=== PATIENT | male | born 1945 | race Caucasian/White ===

== ENCOUNTER 2018-07-06 10:01 | Emergency (ER) | payer MEDICARE ==
[~2018-07-06] VITALS: Ht 182.9 cm; Wt 129.6 kg
[~2018-07-06 10:01] MED LIST: ALBU8HFA PO; ALLO300T2 PO; BACL10TA2 PO; BECL8.7A7 INH; FURO-149 PO; GLIM4TAB PO; IPRA3AMP31 IH; LISI-604 PO; LOP25T PO; POTA-82 PO; PRED10TA PO; PREG150C PO; SIMV40TA PO; SITA100T11 PO; WARF-55 PO
[2018-07-06 10:10] VITALS: BP 115/62
[2018-07-06] MEDS ORDERED: ACET1TAB12 PO (11:18)
== END 2018-07-06 11:57 | disposition home or self-care (01) ==
LOC: ER 10:01
DX: M79.675 Pain in left toe(s) (principal); G89.29 Other chronic pain; I49.9 Cardiac arrhythmia, unspecified; I10 Essential (primary) hypertension; J44.9 Chronic obstructive pulmonary disease, unspecified; E11.9 Type 2 diabetes mellitus without complications; Z95.0 Presence of cardiac pacemaker; Z98.890 Other specified postprocedural states; Z88.5 Allergy status to narcotic agent; Z88.2 Allergy status to sulfonamides; Z88.8 Allergy status to other drugs, medicaments and biological substances; Z79.01 Long term (current) use of anticoagulants; Z79.899 Other long term (current) drug therapy
CPT/HCPCS: 99283

== ENCOUNTER 2018-08-27 09:05 | Emergency (ER) | payer MEDICARE ==
[~2018-08-27] VITALS: Ht 185.4 cm; Wt 128.0 kg
[~2018-08-27 09:05] MED LIST changes: +ACET1TAB12 PO
[2018-08-27 09:07] VITALS: BP 118/84
[2018-08-27] MEDS ORDERED: predniSONE 20 mg tablet PO ONE (09:20)
[2018-08-27] MEDS ORDERED: HYDR-565 PO (09:27)
[2018-08-27] MEDS ORDERED: ONDA4TAB9 PO (09:27)
[2018-08-27] MEDS ORDERED: acetaminophen 325mg tablet PO ONE (09:30)
== END 2018-08-27 09:40 | disposition home or self-care (01) ==
LOC: ER 09:06
DX: M79.675 Pain in left toe(s) (principal); G89.29 Other chronic pain; E11.42 Type 2 diabetes mellitus with diabetic polyneuropathy; I10 Essential (primary) hypertension; J44.9 Chronic obstructive pulmonary disease, unspecified; Z95.0 Presence of cardiac pacemaker; Z98.890 Other specified postprocedural states; Z88.5 Allergy status to narcotic agent; Z88.1 Allergy status to other antibiotic agents; Z88.8 Allergy status to other drugs, medicaments and biological substances; Z79.01 Long term (current) use of anticoagulants; Z79.899 Other long term (current) drug therapy
CPT/HCPCS: 99284

== ENCOUNTER 2018-09-24 08:09 | Emergency (ER) | payer MEDICARE ==
[~2018-09-24] VITALS: Ht 185.4 cm; Wt 127.5 kg
[~2018-09-24 08:09] MED LIST changes: +HYDR-4353 PO; +ONDA4TAB9 PO
[2018-09-24 09:25] LABS: ALANINE AMINOTRANSFERASE 27 U/L (12-78); ALBUMIN 3.5 G/DL (3.4-5.0); ALBUMIN/GLOBULIN RATIO 0.9 (1.1-1.5); ALKALINE PHOSPHATASE 86 IU/L (46-116); ANION GAP 9 (8-16); ASPARTATE AMINO TRANSFERASE 20 U/L (10-37); BILIRUBIN,TOTAL 0.6 MG/DL (0.1-1.0); BLOOD UREA NITROGEN 22 MG/DL (7-18); BUN/CREATININE RATIO 22.9 (5.4-32.0); CALCIUM 9.2 MG/DL (8.5-10.1); CHLORIDE 103 MMOL/L (99-107); CREATININE 0.96 MG/DL (0.60-1.10); GLUCOSE 154 MG/DL (70-104); POTASSIUM 4.3 MMOL/L (3.5-5.1); SODIUM 139 MMOL/L (135-145); TOTAL CARBON DIOXIDE 26.9 MMOL/L (24-32); TOTAL PROTEIN 7.6 G/DL (6.4-8.2); eGFR 77 ML/MIN
[2018-09-24 09:26] LABS: BASOPHILS % (AUTO) 0.2 % (0-1); EOSINOPHILS # (AUTO) 0.5 X10'3 (0-0.9); EOSINOPHILS % (AUTO) 8.1 % (0-6); LYMPHOCYTES # (AUTO) 0.7 X10'3 (1.1-4.8); LYMPHOCYTES % (AUTO) 10.8 % (21-51); MEAN PLATELET VOLUME 10.1 FL (7.4-10.4); MONOCYTES # (AUTO) 0.6 X10'3 (0-0.9); MONOCYTES % (AUTO) 9.1 % (2-12); NEUTROPHILS # (AUTO) 4.7 X10'3 (1.8-7.7); NEUTROPHILS % (AUTO) 71.8 % (42-75); PLATELET COUNT 163 X10'3 (140-440); RED BLOOD COUNT 6.57 X10'6 (4.70-6.10); RED CELL DISTRIBUTION WIDTH 15.4 % (11.5-14.5); WHITE BLOOD COUNT 6.6 X10'3 (4.5-11.0)
[2018-09-24 09:30] LABS: INR 2.1 INR; PARTIAL THROMBOPLASTIN TIME 40 SECONDS (22-32); PROTHROMBIN TIME 20.2 SECONDS (9.0-12.0)
[2018-09-24 09:34] LABS: HEMATOCRIT 53.6 % (42.0-52.0); HEMOGLOBIN 17.8 g/dl (14.0-17.9); MEAN CORPUSCULAR HEMOGLOBIN 27.1 PG (27.0-31.0)
[2018-09-24 09:35] LABS: MEAN CORPUSCULAR HGB CONC 33.2 % (33.0-36.5)
[2018-09-24] MEDS ORDERED: TRAM50TA2 PO (09:45)
[2018-09-24 10:02] VITALS: BP 116/65
== END 2018-09-24 10:09 | disposition home or self-care (01) ==
LOC: ER 08:10
DX: S06.9X1A Unspecified intracranial injury with loss of consciousness of 30 minutes or less, initial encounter (principal); S00.83XA Contusion of other part of head, initial encounter; S13.4XXA Sprain of ligaments of cervical spine, initial encounter; E11.42 Type 2 diabetes mellitus with diabetic polyneuropathy; I10 Essential (primary) hypertension; J44.9 Chronic obstructive pulmonary disease, unspecified; G89.29 Other chronic pain; Z95.0 Presence of cardiac pacemaker; Z98.890 Other specified postprocedural states; Z88.5 Allergy status to narcotic agent; Z88.2 Allergy status to sulfonamides; Z88.1 Allergy status to other antibiotic agents; Z88.8 Allergy status to other drugs, medicaments and biological substances; Z79.01 Long term (current) use of anticoagulants; Z79.899 Other long term (current) drug therapy; W05.0XXA Fall from non-moving wheelchair, initial encounter; Y93.89 Activity, other specified; Y92.89 Other specified places as the place of occurrence of the external cause; Y99.8 Other external cause status
CPT/HCPCS: 36415; 70450; 70486; 72125; 80053; 85025; 85610; 85730; 99285

== ENCOUNTER 2019-07-14 08:43 | Inpatient (IN) | payer MEDICARE ==
[~2019-07-14] VITALS: Ht 185.4 cm; Wt 143.6 kg
[~2019-07-14 08:43] MED LIST changes: -HYDR-4353 PO; -ONDA4TAB9 PO
[2019-07-14 09:41] LABS: BASOPHILS % (AUTO) 0.2 % (0-1); EOSINOPHILS # (AUTO) 0.1 X10'3 (0-0.9); EOSINOPHILS % (AUTO) 2.5 % (0-6); HEMATOCRIT 48.1 % (42.0-52.0); LYMPHOCYTES # (AUTO) 0.2 X10'3 (1.1-4.8); LYMPHOCYTES % (AUTO) 4.2 % (21-51); MEAN CORPUSCULAR HEMOGLOBIN 28.7 PG (27.0-31.0); MEAN CORPUSCULAR HGB CONC 33.3 g/dL (33.0-36.5); MEAN CORPUSCULAR VOLUME 86.3 FL (78-98); MEAN PLATELET VOLUME 8.9 FL (7.4-10.4); MONOCYTES # (AUTO) 0.4 X10'3 (0-0.9); MONOCYTES % (AUTO) 7.4 % (2-12); NEUTROPHILS # (AUTO) 4.9 X10'3 (1.8-7.7); NEUTROPHILS % (AUTO) 85.7 % (42-75); PLATELET COUNT 140 X10'3 (140-440); RED BLOOD COUNT 5.58 X10'6 (4.70-6.10); RED CELL DISTRIBUTION WIDTH 15.6 % (11.5-14.5); WHITE BLOOD COUNT 5.7 X10'3 (4.5-11.0)
--- NOTE | 2019-07-14 09:42 | NUR ---
BACK FROM CT SCAN WITH MONITORED PATIENT
[2019-07-14] MEDS ORDERED: ONDA8TAB6 PO (09:45)
[2019-07-14] MEDS ORDERED: PANT20TA3 PO (09:45)
[2019-07-14] MEDS ORDERED: POTA20TA19 PO (09:45)
[2019-07-14 09:46] LABS: ALANINE AMINOTRANSFERASE 30 U/L (12-78); ALBUMIN 3.6 G/DL (3.4-5.0); ALBUMIN/GLOBULIN RATIO 0.9 (1.1-1.5); ALKALINE PHOSPHATASE 68 IU/L (46-116); ANION GAP 6 (8-16); ASPARTATE AMINO TRANSFERASE 21 U/L (10-37); BILIRUBIN,TOTAL 0.8 MG/DL (0.1-1.0); BLOOD UREA NITROGEN 23 MG/DL (7-18); BUN/CREATININE RATIO 27.1 (5.4-32.0); CALCIUM 8.8 MG/DL (8.5-10.1); CHLORIDE 105 MMOL/L (99-107); CREATININE 0.85 MG/DL (0.60-1.10); GLUCOSE 154 MG/DL (70-104); POTASSIUM 4.3 MMOL/L (3.5-5.1); SODIUM 140 MMOL/L (135-145); TOTAL CARBON DIOXIDE 29.5 MMOL/L (24-32); TOTAL PROTEIN 7.5 G/DL (6.4-8.2); eGFR 89 ML/MIN
[2019-07-14 09:47] LABS: PARTIAL THROMBOPLASTIN TIME 39 SECONDS (22-32)
--- NOTE | 2019-07-14 10:04 | NUR ---
PATIENT'S RR RATE TO 32 AND VERY SHALLOW WITH REPOSITIONING IN BED
[2019-07-14] MEDS ORDERED: HYDROcodone/acetaminophen 5mg/325mg tablet PO ONE (10:10)
[2019-07-14] MEDS ORDERED: furosemide 10 MG/1 ML 10ml inj IV ONE (11:05)
[2019-07-14] MEDS ORDERED: MESSAGE TO PHARMACY PO ONE (11:10)
[2019-07-14] MEDS ORDERED: dextrose 50%-water 50ml dispensing syringe IV PRN ×2 (11:10)
[2019-07-14] MEDS ORDERED: glucagon, human recombinant 1mg kit SUBCUT PRN (11:10)
[2019-07-14] MEDS: furosemide 40mg/4ml inj IV SCH ×2 (11:10→19:56)
[2019-07-14] MEDS ORDERED: dextrose ORAL solution 15 GM/59 ML bottle PO PRN ×2 (11:10)
[2019-07-14] MEDS ORDERED: acetaminophen 325mg tablet PO PRN (11:10)
[2019-07-14] MEDS ORDERED: mag hydrox/Alum hydrox/simeth 30ml oral suspension PO PRN (11:10)
[2019-07-14] MEDS ORDERED: insulin Lispro (HumaLOG) vial - multi-dose SQ SCH (11:10)
[2019-07-14] MEDS ORDERED: magnesium hydroxide 30ml (MOM) UD suspension PO PRN (11:10)
[2019-07-14] MEDS ORDERED: ondansetron/PF 4mg/2ml inj IV PRN (11:10)
[2019-07-14] MEDS ORDERED: HYDR-4383 PO (12:04)
[2019-07-14] MEDS ORDERED: DULO-31 PO (12:05)
[2019-07-14] MEDS ORDERED: FLO0.4C PO (12:09)
--- NOTE | 2019-07-14 12:20 | NUR ---
US TECH AT BEDSIDE TO PERFORM ECHOCARDIOGRAM.
[2019-07-14] MEDS ORDERED: DULO60CA45 PO (12:29)
[2019-07-14] MEDS ORDERED: PIOG30TA71 PO (12:41)
[2019-07-14 15:36] LABS: HEMOGLOBIN A1C 6.1 % (4.5-6.2)
[2019-07-14 16:54] VITALS: BP 122/65
[2019-07-14 18:00] VITALS: BP 130/61
--- NOTE | 2019-07-14 18:14 | NUR ---
Problems reprioritized. Patient report given, questions answered & plan of care reviewed with LOLA Tyler.
--- NOTE | 2019-07-14 19:18 | NUR ---
Paged Dr. Rodriguez regarding pain meds for pt. Awaiting return call for new orders. PAGER ID: [phone] MESSAGE: Pt: Chris Pavon c/o severe chronic toe pain, takes [place] 5-10mg at home which is listed on his med rec, but not ordered yet. Please call Nayeli in [facility] [phone]
--- NOTE | 2019-07-14 19:26 | NUR ---
New pain med orders entered from return call from Dr. Rodriguez. See eMAR for more info.
[2019-07-14] MEDS ORDERED: HYDROcodone/acetaminophen 5mg/325mg tablet PO PRN (19:30)
[2019-07-14] MEDS: duloxetine 30mg CAPSULE.DR PO SCH (19:56)
[2019-07-14] MEDS: baclofen 10mg tablet PO SCH (19:56)
[2019-07-14] MEDS: metoprolol tartrate 50mg tablet PO SCH (19:56)
[2019-07-14] MEDS: HYDROcodone/acetaminophen 10/325mg tab PO PRN (19:57)
[2019-07-14] MEDS: insulin glargine (Lantus) pen - multi-dose SQ SCH (20:01)
[2019-07-14] MEDS: atorvastatin 20mg tablet PO SCH (20:01)
[2019-07-14 22:00] VITALS: BP 133/76
[2019-07-15] MEDS: HYDROcodone/acetaminophen 10/325mg tab PO PRN ×5 (00:05→23:45)
[2019-07-15 02:00] VITALS: BP 131/74
[2019-07-15 06:04] LABS: BASOPHILS % (AUTO) 0.4 % (0-1); EOSINOPHILS # (AUTO) 0.1 X10'3 (0-0.9); EOSINOPHILS % (AUTO) 1.9 % (0-6); HEMATOCRIT 48.2 % (42.0-52.0); HEMOGLOBIN 15.9 g/dl (14.0-17.9); LYMPHOCYTES # (AUTO) 0.4 X10'3 (1.1-4.8); LYMPHOCYTES % (AUTO) 8.3 % (21-51); MEAN CORPUSCULAR HEMOGLOBIN 28.4 PG (27.0-31.0); MEAN CORPUSCULAR HGB CONC 33.1 g/dL (33.0-36.5); MEAN CORPUSCULAR VOLUME 85.6 FL (78-98); MEAN PLATELET VOLUME 9.1 FL (7.4-10.4); MONOCYTES # (AUTO) 0.6 X10'3 (0-0.9); NEUTROPHILS # (AUTO) 4.1 X10'3 (1.8-7.7); NEUTROPHILS % (AUTO) 77.4 % (42-75); PLATELET COUNT 147 X10'3 (140-440); RED BLOOD COUNT 5.63 X10'6 (4.70-6.10); RED CELL DISTRIBUTION WIDTH 15.2 % (11.5-14.5); WHITE BLOOD COUNT 5.4 X10'3 (4.5-11.0)
[2019-07-15 06:32] LABS: ALBUMIN 3.6 G/DL (3.4-5.0); ANION GAP 13 (8-16); BLOOD UREA NITROGEN 23 MG/DL (7-18); BUN/CREATININE RATIO 24.7 (5.4-32.0); CALCIUM 8.4 MG/DL (8.5-10.1); CHLORIDE 101 MMOL/L (99-107); CREATININE 0.93 MG/DL (0.60-1.10); GLUCOSE 110 MG/DL (70-104); POTASSIUM 3.8 MMOL/L (3.5-5.1); SODIUM 139 MMOL/L (135-145); TOTAL CARBON DIOXIDE 25.4 MMOL/L (24-32); eGFR 80 ML/MIN
--- NOTE | 2019-07-15 07:07 | NUR ---
Page to Andrzej DUNHAM Pt. pain control needs PAGER ID: [phone] MESSAGE: Pt. [place] Rm 3027B has poor pain control in Left foot. [place] 10 due at 8 AM. He wants to AMA if pain control is not provided KATY. Provided ice in addition to the Q4 Bo[place] 10 for pain. 09/06 now. Jesusita DAVILA [phone]
[2019-07-15] MEDS: morphine 2 MG/ML inj. syringe IV PRN ×2 (07:33→20:12)
[2019-07-15 07:37] VITALS: BP 120/96
[2019-07-15] MEDS: lisinopril 5mg tablet PO SCH (09:05)
[2019-07-15] MEDS: allopurinol 300 MG tablet PO SCH (09:05)
[2019-07-15] MEDS: furosemide 40mg/4ml inj IV SCH ×2 (09:05→20:11)
[2019-07-15] MEDS: duloxetine 30mg CAPSULE.DR PO SCH ×2 (09:05→20:11)
[2019-07-15] MEDS: metoprolol tartrate 50mg tablet PO SCH ×2 (09:07→20:11)
[2019-07-15] MEDS: tamsulosin 0.4mg capsule PO SCH (09:08)
[2019-07-15] MEDS: baclofen 10mg tablet PO SCH ×2 (09:08→20:11)
[2019-07-15 11:00] VITALS: BP 125/68
--- NOTE | 2019-07-15 13:06 | NUR ---
DM Consult: Pt A1C <7 and not appropriate for DM ed at this time. Addendum: 07/15/19 at [address] Amended: Links added.
[2019-07-15 16:39] VITALS: BP 112/61
[2019-07-15 18:00] VITALS: BP 110/50
[2019-07-15] MEDS: warfarin 5mg tablet PO SCH (20:11)
[2019-07-15] MEDS: atorvastatin 20mg tablet PO SCH (20:11)
[2019-07-15] MEDS: insulin glargine (Lantus) pen - multi-dose SQ SCH (20:12)
[2019-07-15 22:00] VITALS: BP 107/61
[2019-07-16 02:00] VITALS: BP 131/73
[2019-07-16] MEDS: HYDROcodone/acetaminophen 10/325mg tab PO PRN ×3 (04:40→20:47)
[2019-07-16 06:00] VITALS: BP 113/62
[2019-07-16 06:03] LABS: BASOPHILS % (AUTO) 0.4 % (0-1); EOSINOPHILS # (AUTO) 0.2 X10'3 (0-0.9); EOSINOPHILS % (AUTO) 4.9 % (0-6); HEMATOCRIT 48.5 % (42.0-52.0); LYMPHOCYTES # (AUTO) 0.7 X10'3 (1.1-4.8); LYMPHOCYTES % (AUTO) 14.2 % (21-51); MEAN CORPUSCULAR HEMOGLOBIN 28.6 PG (27.0-31.0); MEAN CORPUSCULAR HGB CONC 32.9 g/dL (33.0-36.5); MEAN CORPUSCULAR VOLUME 86.9 FL (78-98); MEAN PLATELET VOLUME 9.9 FL (7.4-10.4); MONOCYTES # (AUTO) 0.6 X10'3 (0-0.9); MONOCYTES % (AUTO) 12.7 % (2-12); NEUTROPHILS # (AUTO) 3.4 X10'3 (1.8-7.7); NEUTROPHILS % (AUTO) 67.8 % (42-75); PLATELET COUNT 131 X10'3 (140-440); RED BLOOD COUNT 5.58 X10'6 (4.70-6.10); RED CELL DISTRIBUTION WIDTH 15.4 % (11.5-14.5)
[2019-07-16 06:12] LABS: ALBUMIN 3.4 G/DL (3.4-5.0); ANION GAP 10 (8-16); BLOOD UREA NITROGEN 27 MG/DL (7-18); BUN/CREATININE RATIO 32.1 (5.4-32.0); CALCIUM 8.8 MG/DL (8.5-10.1); CHLORIDE 99 MMOL/L (99-107); CREATININE 0.84 MG/DL (0.60-1.10); GLUCOSE 111 MG/DL (70-104); POTASSIUM 3.4 MMOL/L (3.5-5.1); SODIUM 138 MMOL/L (135-145); TOTAL CARBON DIOXIDE 28.8 MMOL/L (24-32); eGFR 90 ML/MIN
--- NOTE | 2019-07-16 06:26 | NUR ---
Patient in room PCU 3027. I have received report from Nayeli DAVILA and had the opportunity to ask questions and assume patient care.
[2019-07-16] MEDS: lisinopril 5mg tablet PO SCH (08:49)
[2019-07-16] MEDS: duloxetine 30mg CAPSULE.DR PO SCH ×2 (08:49→20:36)
[2019-07-16] MEDS: metoprolol tartrate 50mg tablet PO SCH ×2 (08:50→20:41)
[2019-07-16] MEDS: furosemide 40mg/4ml inj IV SCH ×2 (08:51→20:41)
[2019-07-16] MEDS: allopurinol 300 MG tablet PO SCH (08:51)
[2019-07-16] MEDS: tamsulosin 0.4mg capsule PO SCH (08:51)
[2019-07-16] MEDS: baclofen 10mg tablet PO SCH ×2 (08:51→20:37)
[2019-07-16 11:00] VITALS: BP 122/61
--- NOTE | 2019-07-16 12:22 | NUR ---
Page Rusu notified of K+ level AM labs PAGER ID: [phone] MESSAGE: Chris Alcantara 1626M potassium level 3.4 would you like to order a k+ replacement protocol
[2019-07-16] MEDS ORDERED: magnesium 4gm in 100ml NS 100 ML IV PRN (13:00)
[2019-07-16] MEDS ORDERED: potassium Cl 20mEq/100mL bag 100 ML IV PRN (13:00)
[2019-07-16] MEDS ORDERED: magnesium 2GM in 50ml NS 50 ML IV PRN (13:00)
[2019-07-16] MEDS: potassium Cl 20 mEq SR tablet PO PRN (14:27)
[2019-07-16 15:00] VITALS: BP 92/53
--- NOTE | 2019-07-16 18:20 | NUR ---
Patient in room PCU 3021. I have received report from LOLA COUGHLIN and had the opportunity to ask questions and assume patient care.
[2019-07-16 19:00] VITALS: BP 110/66
[2019-07-16] MEDS: warfarin 5mg tablet PO SCH (20:37)
[2019-07-16] MEDS: atorvastatin 20mg tablet PO SCH (20:37)
[2019-07-16] MEDS: insulin glargine (Lantus) pen - multi-dose SQ SCH (21:00)
[2019-07-16 23:00] VITALS: BP 107/54
[2019-07-17] MEDS: potassium Cl 20 mEq SR tablet PO PRN ×3 (00:07→07:33)
[2019-07-17] MEDS: HYDROcodone/acetaminophen 10/325mg tab PO PRN ×2 (01:52→06:50)
[2019-07-17 03:00] VITALS: BP 19/67
[2019-07-17] MEDS: morphine 2 MG/ML inj. syringe IV PRN (04:05)
[2019-07-17 05:25] LABS: WHITE BLOOD COUNT 6.1 X10'3 (4.5-11.0)
[2019-07-17 05:30] LABS: BASOPHILS % (AUTO) 0.4 % (0-1); EOSINOPHILS # (AUTO) 0.2 X10'3 (0-0.9); EOSINOPHILS % (AUTO) 3.6 % (0-6); HEMATOCRIT 48.4 % (42.0-52.0); HEMOGLOBIN 16.2 g/dl (14.0-17.9); LYMPHOCYTES # (AUTO) 0.7 X10'3 (1.1-4.8); LYMPHOCYTES % (AUTO) 11.7 % (21-51); MEAN CORPUSCULAR HEMOGLOBIN 28.6 PG (27.0-31.0); MEAN CORPUSCULAR HGB CONC 33.5 g/dL (33.0-36.5); MEAN CORPUSCULAR VOLUME 85.6 FL (78-98); MEAN PLATELET VOLUME 9.2 FL (7.4-10.4); MONOCYTES # (AUTO) 0.6 X10'3 (0-0.9); MONOCYTES % (AUTO) 9.2 % (2-12); NEUTROPHILS # (AUTO) 4.6 X10'3 (1.8-7.7); NEUTROPHILS % (AUTO) 75.1 % (42-75); PLATELET COUNT 143 X10'3 (140-440); RED BLOOD COUNT 5.66 X10'6 (4.70-6.10); RED CELL DISTRIBUTION WIDTH 15.3 % (11.5-14.5)
[2019-07-17 05:42] LABS: ALBUMIN 3.5 G/DL (3.4-5.0); ANION GAP 9 (8-16); CALCIUM 8.6 MG/DL (8.5-10.1); CHLORIDE 98 MMOL/L (99-107); CREATININE 0.91 MG/DL (0.60-1.10); GLUCOSE 119 MG/DL (70-104); SODIUM 134 MMOL/L (135-145); eGFR 82 ML/MIN
[2019-07-17 06:00] VITALS: BP 112/57
[2019-07-17 06:16] LABS: BLOOD UREA NITROGEN 33 MG/DL (7-18); BUN/CREATININE RATIO 36.3 (5.4-32.0)
--- NOTE | 2019-07-17 06:22 | NUR ---
Problems reprioritized. Patient report given, questions answered & plan of care reviewed with LOLA Cates.
--- NOTE | 2019-07-17 06:53 | NUR ---
Medicated with [facility] for 9/10 left great toe pain.
[2019-07-17] MEDS: allopurinol 300 MG tablet PO SCH (07:24)
[2019-07-17] MEDS: furosemide 40mg/4ml inj IV SCH (07:24)
[2019-07-17] MEDS: lisinopril 5mg tablet PO SCH (07:24)
[2019-07-17] MEDS: duloxetine 30mg CAPSULE.DR PO SCH (07:24)
[2019-07-17 07:25] VITALS: BP_SYST 112
[2019-07-17] MEDS: metoprolol tartrate 50mg tablet PO SCH (07:25)
[2019-07-17] MEDS: tamsulosin 0.4mg capsule PO SCH (07:25)
[2019-07-17] MEDS: baclofen 10mg tablet PO SCH (07:25)
[2019-07-17] MEDS ORDERED: FURO40TA4 PO (08:49)
--- NOTE | 2019-07-17 09:39 | NUR ---
Pt. has discharge orders from Dr. Donnelly. [facility]ania bedside delivery contacted for new RX.
--- NOTE | 2019-07-17 10:31 | NUR ---
New med delivered by [facility]. Discharge instructions given to pt. Pt. called for ride home.
--- NOTE | 2019-07-17 10:45 | NUR ---
Pt. taken out to lobby via w/c accompanied by family in stable condition with all belongings.
== END 2019-07-17 10:45 | disposition home or self-care (01) | DRG 292 ==
LOC: ER 08:44 → PCU 3S 16:42 → CMPBEDREQ 07-16 21:12 → PCU 3S 07-17 00:24
PROVIDERS: ADMIT Internal Medicine; ATTEND Internal Medicine
DX: I11.0 Hypertensive heart disease with heart failure (principal); Z68.41 Body mass index [BMI] 40.0-44.9, adult; I50.813 Acute on chronic right heart failure; I49.5 Sick sinus syndrome; E66.01 Morbid (severe) obesity due to excess calories; E11.42 Type 2 diabetes mellitus with diabetic polyneuropathy; E78.5 Hyperlipidemia, unspecified; G47.30 Sleep apnea, unspecified; G89.29 Other chronic pain; M10.9 Gout, unspecified; S00.11XA Contusion of right eyelid and periocular area, initial encounter; S00.12XA Contusion of left eyelid and periocular area, initial encounter; S00.03XA Contusion of scalp, initial encounter; M54.9 Dorsalgia, unspecified; I27.81 Cor pulmonale (chronic); M79.675 Pain in left toe(s); W01.198A Fall on same level from slipping, tripping and stumbling with subsequent striking against other object, initial encounter; I48.0 Paroxysmal atrial fibrillation; J44.9 Chronic obstructive pulmonary disease, unspecified; N40.0 Benign prostatic hyperplasia without lower urinary tract symptoms; Z79.01 Long term (current) use of anticoagulants; Z79.84 Long term (current) use of oral hypoglycemic drugs; Z79.899 Other long term (current) drug therapy; Z80.1 Family history of malignant neoplasm of trachea, bronchus and lung; Z87.891 Personal history of nicotine dependence; Z95.0 Presence of cardiac pacemaker; Y93.89 Activity, other specified; Y92.89 Other specified places as the place of occurrence of the external cause; Y99.8 Other external cause status; Z88.2 Allergy status to sulfonamides; Z88.8 Allergy status to other drugs, medicaments and biological substances; Z80.8 Family history of malignant neoplasm of other organs or systems; Z84.89 Family history of other specified conditions
CPT/HCPCS: 36415; 70450; 71045; 72125; 80048; 80053; 82948; 83036; 83880; 84484; 85025; 85610; 85730; 87081; 93005; 93308; 96374; 99285; G0378; J1815; J1940; J2270

== ENCOUNTER 2019-08-07 02:39 | Emergency (ER) | payer MEDICARE ==
[~2019-08-07] VITALS: Ht 185.4 cm; Wt 119.7 kg
[~2019-08-07 02:39] MED LIST changes: -ACET1TAB12 PO; -ALBU8HFA PO; -BECL8.7A7 INH; +DULO60CA45 PO; +FLO0.4C PO; -FURO-149 PO; +FURO40TA4 PO; +HYDR-4383 PO; -IPRA3AMP31 IH; +PIOG30TA71 PO; -POTA-82 PO; -PRED10TA PO; -PREG150C PO; -SITA100T11 PO
[2019-08-07] MEDS ORDERED: HYDROcodone/acetaminophen 10/325mg tab PO ONE (04:20)
[2019-08-07] MEDS ORDERED: morphine 4 MG/ML inj SYRINge IM ONE (04:20)
[2019-08-07] MEDS ORDERED: HYDR-4353 PO (04:22)
--- NOTE | 2019-08-07 04:29 | NUR ---
PT STATES" HE IS NOT ALLERGIC TO MORPHINE IT JUST DOESN'T SIT WELL WITH HIM , I MAKES ME ITCH " PT REQUESTING HAVING THE MORPHINE FOR PAIN RELIEF FOR THE LEFT TOE. PT DENIES HAVING ANY ALLEGIC REACTION WITH IM OR IV MORPHINE . "I HAVE TAKEN ALOT OF MORPHINE IN MY LIFE "
[2019-08-07 04:43] VITALS: BP 109/53
== END 2019-08-07 04:40 | disposition home or self-care (01) ==
LOC: ER 02:40
DX: G89.29 Other chronic pain (principal); M79.675 Pain in left toe(s); I10 Essential (primary) hypertension; J44.9 Chronic obstructive pulmonary disease, unspecified; E11.9 Type 2 diabetes mellitus without complications; Z95.0 Presence of cardiac pacemaker; Z98.890 Other specified postprocedural states; Z88.5 Allergy status to narcotic agent; Z88.2 Allergy status to sulfonamides; Z88.1 Allergy status to other antibiotic agents; Z79.899 Other long term (current) drug therapy; Z79.01 Long term (current) use of anticoagulants
CPT/HCPCS: 82948; 96372; 99284; J2270

== ENCOUNTER 2019-11-16 10:09 | Emergency (ER) | payer MEDICARE ==
[~2019-11-16] VITALS: Ht 185.4 cm; Wt 144.0 kg
[~2019-11-16 10:09] MED LIST changes: -FURO40TA4 PO
[2019-11-16 10:18] VITALS: BP 107/61
[2019-11-16] MEDS ORDERED: CEPH250T PO (11:50)
== END 2019-11-16 12:13 | disposition home or self-care (01) ==
LOC: ER 10:12
DX: L03.115 Cellulitis of right lower limb (principal); I10 Essential (primary) hypertension; J44.9 Chronic obstructive pulmonary disease, unspecified; G89.29 Other chronic pain; E11.42 Type 2 diabetes mellitus with diabetic polyneuropathy; Z98.890 Other specified postprocedural states; Z95.0 Presence of cardiac pacemaker; Z88.5 Allergy status to narcotic agent; Z88.1 Allergy status to other antibiotic agents; Z79.899 Other long term (current) drug therapy; Z79.01 Long term (current) use of anticoagulants
CPT/HCPCS: 99284

== ENCOUNTER 2019-11-21 01:23 | Emergency (ER) | payer MEDICARE ==
[~2019-11-21] VITALS: Ht 185.4 cm; Wt 146.6 kg
[~2019-11-21 01:23] MED LIST changes: +CEPH250T PO
[2019-11-21] MEDS ORDERED: clindamycin 150mg capsule PO ONE (01:45)
[2019-11-21] MEDS ORDERED: LACT1CAP65 PO (01:46)
[2019-11-21] MEDS ORDERED: CLIN-90 PO (01:46)
[2019-11-21 01:52] VITALS: BP 134/66
== END 2019-11-21 01:58 | disposition home or self-care (01) ==
LOC: ER 01:24
DX: L03.115 Cellulitis of right lower limb (principal); I10 Essential (primary) hypertension; J44.9 Chronic obstructive pulmonary disease, unspecified; G89.29 Other chronic pain; E11.42 Type 2 diabetes mellitus with diabetic polyneuropathy; Z87.891 Personal history of nicotine dependence; Z95.0 Presence of cardiac pacemaker; Z79.01 Long term (current) use of anticoagulants; Z79.899 Other long term (current) drug therapy; Z88.5 Allergy status to narcotic agent; Z88.1 Allergy status to other antibiotic agents
CPT/HCPCS: 99284

== ENCOUNTER 2020-01-09 09:39 | Emergency (ER) | payer MEDICARE ==
[~2020-01-09] VITALS: Ht 185.4 cm; Wt 145.9 kg
[~2020-01-09 09:39] MED LIST changes: -CEPH250T PO; +CLIN-90 PO; +LACT1CAP65 PO
[2020-01-09 10:31] LABS: EOSINOPHILS # (AUTO) 0.2 X10'3 (0-0.9); EOSINOPHILS % (AUTO) 2.9 % (0-6); MEAN PLATELET VOLUME 9.6 FL (7.4-10.4); MONOCYTES # (AUTO) 0.7 X10'3 (0-0.9)
[2020-01-09 10:32] LABS: BASOPHILS % (AUTO) 0.3 % (0-1); HEMATOCRIT 48.8 % (42.0-52.0); HEMOGLOBIN 16.4 g/dl (14.0-17.9); LYMPHOCYTES # (AUTO) 0.6 X10'3 (1.1-4.8); MEAN CORPUSCULAR HEMOGLOBIN 28.5 PG (27.0-31.0); MEAN CORPUSCULAR HGB CONC 33.5 g/dL (33.0-36.5); MEAN CORPUSCULAR VOLUME 84.9 FL (78-98); MONOCYTES % (AUTO) 8.4 % (2-12); NEUTROPHILS # (AUTO) 6.4 X10'3 (1.8-7.7); NEUTROPHILS % (AUTO) 80.4 % (42-75); PLATELET COUNT 199 X10'3 (140-440); RED BLOOD COUNT 5.75 X10'6 (4.70-6.10); RED CELL DISTRIBUTION WIDTH 15.9 % (11.5-14.5); WHITE BLOOD COUNT 7.9 X10'3 (4.5-11.0)
[2020-01-09 10:33] LABS: PARTIAL THROMBOPLASTIN TIME 43 SECONDS (22-32)
[2020-01-09 10:35] LABS: ALANINE AMINOTRANSFERASE 28 U/L (12-78); ALBUMIN 3.5 G/DL (3.4-5.0); ALBUMIN/GLOBULIN RATIO 0.8 (1.1-1.5); ALKALINE PHOSPHATASE 72 IU/L (46-116); ANION GAP 4 (8-16); ASPARTATE AMINO TRANSFERASE 23 U/L (10-37); BILIRUBIN,TOTAL 0.7 MG/DL (0.1-1.0); BLOOD UREA NITROGEN 23 MG/DL (7-18); CHLORIDE 102 MMOL/L (99-107); GLUCOSE 122 MG/DL (70-104); POTASSIUM 4.5 MMOL/L (3.5-5.1); SODIUM 139 MMOL/L (135-145); TOTAL CARBON DIOXIDE 32.7 MMOL/L (24-32); TOTAL PROTEIN 7.7 G/DL (6.4-8.2); eGFR 73 ML/MIN
--- NOTE | 2020-01-09 11:43 | NUR ---
pt sitting in chair leaning on walker, states this is the best position for me
--- NOTE | 2020-01-09 11:44 | NUR ---
swelling of abd started 1 1/2 week ago and last 3 days worsened. today laid down to take a nap and pt states, i quit breathing
[2020-01-09 12:13] VITALS: BP 148/76
== END 2020-01-09 12:15 | disposition home or self-care (01) ==
LOC: ER 09:39
DX: J44.9 Chronic obstructive pulmonary disease, unspecified (principal); R19.00 Intra-abdominal and pelvic swelling, mass and lump, unspecified site; E11.42 Type 2 diabetes mellitus with diabetic polyneuropathy; I10 Essential (primary) hypertension; G89.29 Other chronic pain; Z95.0 Presence of cardiac pacemaker; Z98.890 Other specified postprocedural states; Z88.5 Allergy status to narcotic agent; Z88.2 Allergy status to sulfonamides; Z88.1 Allergy status to other antibiotic agents; Z79.2 Long term (current) use of antibiotics; Z79.01 Long term (current) use of anticoagulants; Z79.899 Other long term (current) drug therapy
CPT/HCPCS: 36415; 71045; 74176; 80053; 83880; 84484; 85025; 85610; 85730; 93005; 99285

== ENCOUNTER 2020-01-13 09:30 | Emergency (ER) | payer MEDICARE ==
[~2020-01-13] VITALS: Ht 185.4 cm; Wt 146.6 kg
--- NOTE | 2020-01-13 10:28 | NUR ---
Pt back from xray, lab at bedside to draw.
[2020-01-13 11:13] LABS: EOSINOPHILS % (AUTO) 0.3 % (0-6); HEMOGLOBIN 16.2 g/dl (14.0-17.9); LYMPHOCYTES # (AUTO) 0.2 X10'3 (1.1-4.8); NEUTROPHILS # (AUTO) 5.3 X10'3 (1.8-7.7); WHITE BLOOD COUNT 6.1 X10'3 (4.5-11.0)
[2020-01-13 11:14] LABS: BASOPHILS % (AUTO) 0.4 % (0-1); HEMATOCRIT 48.8 % (42.0-52.0); LYMPHOCYTES % (AUTO) 2.8 % (21-51); MEAN CORPUSCULAR HEMOGLOBIN 28.2 PG (27.0-31.0); MEAN CORPUSCULAR HGB CONC 33.1 g/dL (33.0-36.5); MEAN CORPUSCULAR VOLUME 85.1 FL (78-98); MEAN PLATELET VOLUME 9.6 FL (7.4-10.4); MONOCYTES # (AUTO) 0.6 X10'3 (0-0.9); MONOCYTES % (AUTO) 9.1 % (2-12); NEUTROPHILS % (AUTO) 87.4 % (42-75); PLATELET COUNT 129 X10'3 (140-440); RED BLOOD COUNT 5.74 X10'6 (4.70-6.10)
[2020-01-13 11:27] LABS: ALANINE AMINOTRANSFERASE 23 U/L (12-78); ALBUMIN 3.8 G/DL (3.4-5.0); ALBUMIN/GLOBULIN RATIO 0.9 (1.1-1.5); ALKALINE PHOSPHATASE 66 IU/L (46-116); ANION GAP 7 (8-16); ASPARTATE AMINO TRANSFERASE 24 U/L (10-37); BILIRUBIN,TOTAL 0.7 MG/DL (0.1-1.0); BLOOD UREA NITROGEN 21 MG/DL (7-18); BUN/CREATININE RATIO 21.9 (5.4-32.0); CALCIUM 9.1 MG/DL (8.5-10.1); CHLORIDE 99 MMOL/L (99-107); CREATININE 0.96 MG/DL (0.60-1.10); GLUCOSE 125 MG/DL (70-104); MAGNESIUM 1.7 MG/DL (1.5-2.4); POTASSIUM 4.2 MMOL/L (3.5-5.1); SODIUM 136 MMOL/L (135-145); TOTAL CARBON DIOXIDE 30.5 MMOL/L (24-32); TOTAL PROTEIN 8.2 G/DL (6.4-8.2); eGFR 77 ML/MIN
--- NOTE | 2020-01-13 11:30 | NUR ---
Patient placed on droplet precautions at this time.
--- NOTE | 2020-01-13 11:39 | NUR ---
The patient states that since he was placed on oxygen, he states that he feels it is easier to breathe.
--- NOTE | 2020-01-13 12:14 | NUR ---
Pt [place].
[2020-01-13 13:24] VITALS: BP 143/70
== END 2020-01-13 14:33 | disposition home or self-care (01) ==
LOC: ER 09:30
DX: J10.1 Influenza due to other identified influenza virus with other respiratory manifestations (principal); E66.01 Morbid (severe) obesity due to excess calories; I10 Essential (primary) hypertension; J44.9 Chronic obstructive pulmonary disease, unspecified; G89.29 Other chronic pain; E11.42 Type 2 diabetes mellitus with diabetic polyneuropathy; Z95.0 Presence of cardiac pacemaker; Z98.890 Other specified postprocedural states; Z88.5 Allergy status to narcotic agent; Z88.1 Allergy status to other antibiotic agents; Z79.899 Other long term (current) drug therapy; Z79.01 Long term (current) use of anticoagulants
CPT/HCPCS: 36415; 71046; 80053; 83605; 83735; 84484; 85025; 87040; 87502; 87503; 93005; 99285

== ENCOUNTER 2020-01-20 03:47 | Inpatient (IN) | payer MEDICARE ==
[~2020-01-20] VITALS: Ht 185.4 cm; Wt 145.3 kg
[2020-01-20 04:41] LABS: BASOPHILS % (AUTO) 0.1 % (0-1); EOSINOPHILS % (AUTO) 0.1 % (0-6); HEMATOCRIT 47.7 % (42.0-52.0); HEMOGLOBIN 15.8 g/dl (14.0-17.9); LYMPHOCYTES # (AUTO) 0.8 X10'3 (1.1-4.8); LYMPHOCYTES % (AUTO) 17.9 % (21-51); MEAN CORPUSCULAR HEMOGLOBIN 27.5 PG (27.0-31.0); MEAN CORPUSCULAR HGB CONC 33.1 g/dL (33.0-36.5); MEAN CORPUSCULAR VOLUME 83.2 FL (78-98); MEAN PLATELET VOLUME 9.1 FL (7.4-10.4); MONOCYTES # (AUTO) 0.4 X10'3 (0-0.9); MONOCYTES % (AUTO) 9.6 % (2-12); NEUTROPHILS # (AUTO) 3.4 X10'3 (1.8-7.7); NEUTROPHILS % (AUTO) 72.3 % (42-75); PLATELET COUNT 118 X10'3 (140-440); RED BLOOD COUNT 5.73 X10'6 (4.70-6.10); RED CELL DISTRIBUTION WIDTH 15.6 % (11.5-14.5); WHITE BLOOD COUNT 4.6 X10'3 (4.5-11.0)
[2020-01-20] MEDS ORDERED: ipratropium/albuterol 3ml nebule NEB ONE (04:50)
[2020-01-20] MEDS ORDERED: methylPREDNISolone sod succ 125mg/2ml vial IV ONE (04:50)
[2020-01-20 05:00] LABS: ALANINE AMINOTRANSFERASE 25 U/L (12-78); ALBUMIN 3.6 G/DL (3.4-5.0); ALBUMIN/GLOBULIN RATIO 0.9 (1.1-1.5); ALKALINE PHOSPHATASE 58 IU/L (46-116); ANION GAP 9 (8-16); ASPARTATE AMINO TRANSFERASE 23 U/L (10-37); BILIRUBIN,TOTAL 0.7 MG/DL (0.1-1.0); BLOOD UREA NITROGEN 24 MG/DL (7-18); BUN/CREATININE RATIO 27.9 (5.4-32.0); CALCIUM 9.5 MG/DL (8.5-10.1); CHLORIDE 105 MMOL/L (99-107); CREATININE 0.86 MG/DL (0.60-1.10); GLUCOSE 115 MG/DL (70-104); POTASSIUM 3.5 MMOL/L (3.5-5.1); SODIUM 142 MMOL/L (135-145); TOTAL PROTEIN 7.6 G/DL (6.4-8.2); eGFR 87 ML/MIN
[2020-01-20] MEDS ORDERED: fentaNYL/PF 50MCG/1 ML 2ML syringe IV ONE (05:00)
[2020-01-20] MEDS ORDERED: ondansetron/PF 4mg/2ml inj IV ONE (05:00)
[2020-01-20] MEDS ORDERED: acetaminophen 325mg tablet PO PRN ×2 (05:10)
[2020-01-20] MEDS ORDERED: magnesium hydroxide 30ml (MOM) UD suspension PO PRN (05:10)
[2020-01-20] MEDS ORDERED: magnesium 2GM in 50ml NS 50 ML IV PRN (05:10)
[2020-01-20] MEDS ORDERED: mag hydrox/Alum hydrox/simeth 30ml oral suspension PO PRN (05:10)
[2020-01-20] MEDS ORDERED: ondansetron/PF 4mg/2ml inj IV PRN (05:10)
[2020-01-20] MEDS ORDERED: normal saline 1000ml 1,000 ML IV ONE (05:10)
[2020-01-20] MEDS ORDERED: magnesium 4gm in 100ml NS 100 ML IV PRN (05:10)
[2020-01-20] MEDS ORDERED: magnesium Cl slow-release 64mg tablet PO PRN (05:10)
[2020-01-20] MEDS ORDERED: ALB0.5UD IH (05:20)
[2020-01-20] MEDS ORDERED: ALBU8HFA PO (05:20)
[2020-01-20] MEDS ORDERED: PRED5TAB PO (05:20)
[2020-01-20] MEDS ORDERED: ipratropium/albuterol 3ml nebule NEB PRN (05:35)
[2020-01-20] MEDS ORDERED: CefTRIAXone 2gm/D5W 50ml 50 ML IV ONE (05:35)
[2020-01-20] MEDS ORDERED: HYDROmorphone 1 mg/ml syringe IV PRN (05:40)
[2020-01-20] MEDS ORDERED: HYDROmorphone inj. 0.5 MG/0.5 ML DISP.SYRIN IV PRN (05:40)
[2020-01-20] MEDS ORDERED: dextrose ORAL solution 15 GM/59 ML bottle PO PRN ×2 (05:45)
[2020-01-20] MEDS ORDERED: glucagon, human recombinant 1mg kit SUBCUT PRN (05:45)
[2020-01-20] MEDS ORDERED: dextrose 50%-water 50ml dispensing syringe IV PRN ×2 (05:45)
[2020-01-20] MEDS ORDERED: MESSAGE TO PHARMACY PO ONE (05:45)
[2020-01-20] MEDS: ipratropium/albuterol 3ml nebule NEB SCH ×4 (07:08→21:09)
[2020-01-20 07:24] LABS: HEMOGLOBIN A1C 7.4 % (4.5-6.2)
[2020-01-20] MEDS ORDERED: enoxaparin 40mg/0.4ml syringe SQ SCH (08:00)
[2020-01-20] MEDS ORDERED: warfarin 5mg tablet PO SCH (08:00)
[2020-01-20] MEDS: oxyCODONE/APAP 5-325mg tablet PO PRN ×2 (08:33→19:54)
[2020-01-20] MEDS: metoprolol tartrate 50mg tablet PO SCH ×2 (08:36→19:52)
[2020-01-20] MEDS: allopurinol 300 MG tablet PO SCH (08:37)
[2020-01-20] MEDS: tamsulosin 0.4mg capsule PO SCH (08:56)
[2020-01-20] MEDS: duloxetine 30mg CAPSULE.DR PO SCH ×2 (08:56→19:54)
[2020-01-20] MEDS: baclofen 10mg tablet PO SCH ×2 (08:56→19:54)
[2020-01-20] MEDS: lisinopril 5mg tablet PO SCH (08:57)
[2020-01-20] MEDS: budesonide 0.5mg/2ml UD nebule IH SCH ×2 (09:10→21:11)
[2020-01-20 10:45] VITALS: BP 154/88
[2020-01-20 11:00] VITALS: BP 157/86
[2020-01-20] MEDS: insulin Lispro (HumaLOG) vial - multi-dose SQ SCH ×2 (14:58→21:08)
--- NOTE | 2020-01-20 18:30 | NUR ---
Patient in room [facility] 340. I have received report from Sheila DAVILA and had the opportunity to ask questions and assume patient care.
--- NOTE | 2020-01-20 19:38 | NUR ---
Problems reprioritized. Patient report given, questions answered & plan of care reviewed with Varsha DAVILA.
[2020-01-20 20:00] VITALS: BP 118/76
[2020-01-20 20:02] VITALS: BP 118/76
[2020-01-20] MEDS ORDERED: atorvastatin 20mg tablet PO SCH (21:00)
[2020-01-20] MEDS ORDERED: insulin glargine (Lantus) pen - multi-dose SQ SCH (21:00)
[2020-01-21] VITALS: BP 142/81
[2020-01-21 06:18] LABS: BASOPHILS % (AUTO) 0 % (0-1); EOSINOPHILS % (AUTO) 0 % (0-6); HEMATOCRIT 44.1 % (42.0-52.0); HEMOGLOBIN 14.6 g/dl (14.0-17.9); LYMPHOCYTES # (AUTO) 0.4 X10'3 (1.1-4.8); LYMPHOCYTES % (AUTO) 7.7 % (21-51); MEAN CORPUSCULAR HEMOGLOBIN 28.1 PG (27.0-31.0); MEAN CORPUSCULAR HGB CONC 33.1 g/dL (33.0-36.5); MEAN CORPUSCULAR VOLUME 84.7 FL (78-98); MEAN PLATELET VOLUME 9.2 FL (7.4-10.4); MONOCYTES # (AUTO) 0.3 X10'3 (0-0.9); MONOCYTES % (AUTO) 5.2 % (2-12); NEUTROPHILS # (AUTO) 4.9 X10'3 (1.8-7.7); NEUTROPHILS % (AUTO) 87.1 % (42-75); PLATELET COUNT 109 X10'3 (140-440); RED BLOOD COUNT 5.21 X10'6 (4.70-6.10); RED CELL DISTRIBUTION WIDTH 15.7 % (11.5-14.5); WHITE BLOOD COUNT 5.6 X10'3 (4.5-11.0)
[2020-01-21 06:22] LABS: ANION GAP 8 (8-16); BLOOD UREA NITROGEN 19 MG/DL (7-18); BUN/CREATININE RATIO 22.9 (5.4-32.0); CALCIUM 8.7 MG/DL (8.5-10.1); CHLORIDE 103 MMOL/L (99-107); CREATININE 0.83 MG/DL (0.60-1.10); GLUCOSE 195 MG/DL (70-104); MAGNESIUM 1.7 MG/DL (1.5-2.4); POTASSIUM 3.9 MMOL/L (3.5-5.1); SODIUM 138 MMOL/L (135-145); TOTAL CARBON DIOXIDE 27.3 MMOL/L (24-32); eGFR > 90 ML/MIN
--- NOTE | 2020-01-21 06:23 | NUR ---
Problems reprioritized. Patient report given, questions answered & plan of care reviewed with Sheila DAVILA.
[2020-01-21] MEDS: allopurinol 300 MG tablet PO SCH (07:57)
[2020-01-21] MEDS: duloxetine 30mg CAPSULE.DR PO SCH (07:58)
[2020-01-21] MEDS: metoprolol tartrate 50mg tablet PO SCH (07:58)
[2020-01-21] MEDS: lisinopril 5mg tablet PO SCH (07:58)
[2020-01-21] MEDS: tamsulosin 0.4mg capsule PO SCH (07:58)
[2020-01-21] MEDS: baclofen 10mg tablet PO SCH (07:59)
[2020-01-21 08:00] VITALS: BP 130/58
[2020-01-21] MEDS ORDERED: CefTRIAXone 2gm/D5W 50ml 50 ML IV SCH (08:00)
[2020-01-21] MEDS ORDERED: methylPREDNISolone sod succ 125mg/2ml vial IV SCH (08:00)
[2020-01-21] MEDS: ipratropium/albuterol 3ml nebule NEB SCH ×3 (08:13→15:00)
[2020-01-21] MEDS: budesonide 0.5mg/2ml UD nebule IH SCH (08:13)
[2020-01-21] MEDS: insulin Lispro (HumaLOG) vial - multi-dose SQ SCH ×2 (08:26→13:36)
[2020-01-21 11:00] VITALS: BP 123/70
--- NOTE | 2020-01-21 13:30 | NUR ---
Patient in room [facility] 357. I have received report from Sheila DAVILA and had the opportunity to ask questions and assume patient care.
--- NOTE | 2020-01-21 15:20 | NUR ---
DM consult: Pt documented with A1c of 7.4. RD regulatory intern visited pt at bedside to provide written and verbal DM education with referral to CDE course and RD contact information. Pt reports taking antidiabetic meds as prescribed and denies any questions at this time. Pt endorses a great appetite seen by PO intake of 75-100%. Pt denies double protein at this time, food allergies, difficulties chewing/swallowing. Pt reports constipation however declines power pudding/prunes/prune juice. LBM 01/19. Will continue to monitor. Addendum: 01/21/20 at [address] Amended: Links added. Addendum: 01/21/20 at [address] RD agree with regulatory intern note
[2020-01-21] MEDS ORDERED: PRED20TA PO (15:44)
--- NOTE | 2020-01-21 16:00 | NUR ---
Patients discharge instruction reviewed with patient and patient verbalized understanding. IV dc'd cannula intact Patient states he has all his belongings. Patient was wheelchaired to friend waiting in lobby for discharge.
== END 2020-01-21 16:34 | disposition home or self-care (01) | DRG 191 ==
LOC: ER 03:48 → ED HOLD 05:10 → SUR 3N 10:41
PROVIDERS: ADMIT Hospitalist; ATTEND Family Medicine
DX: J44.1 Chronic obstructive pulmonary disease with (acute) exacerbation (principal); Z68.41 Body mass index [BMI] 40.0-44.9, adult; I48.20 Chronic atrial fibrillation, unspecified; E11.42 Type 2 diabetes mellitus with diabetic polyneuropathy; I10 Essential (primary) hypertension; R06.03 Acute respiratory distress; G89.29 Other chronic pain; M10.9 Gout, unspecified; E66.01 Morbid (severe) obesity due to excess calories; M54.9 Dorsalgia, unspecified; Z79.01 Long term (current) use of anticoagulants; Z79.84 Long term (current) use of oral hypoglycemic drugs; Z80.1 Family history of malignant neoplasm of trachea, bronchus and lung; Z88.5 Allergy status to narcotic agent; Z88.8 Allergy status to other drugs, medicaments and biological substances; Z79.899 Other long term (current) drug therapy
CPT/HCPCS: 36415; 71046; 80048; 80053; 82948; 83036; 83735; 83880; 85025; 85610; 87040; 87081; 93005; 94640; 94760; 96374; 96375; 99285; G0378; J0696; J1170; J1650; J1815; J2405; J2930; J3010; J7030; J7626

== ENCOUNTER 2020-03-16 08:39 | Emergency (ER) | payer MEDICARE ==
[~2020-03-16] VITALS: Ht 185.4 cm; Wt 148.6 kg
[~2020-03-16 08:39] MED LIST changes: +ALB0.5UD IH; -CLIN-90 PO; -LACT1CAP65 PO; +PRED20TA PO
[2020-03-16 09:56] LABS: CLARITY,URINE CLEAR (Clear); COLOR,URINE STRAW (Yellow); GLUCOSE, URINE NEGATIVE (Neg); KETONES,URINE NEGATIVE (Neg); LEUKOCYTE ESTERASE ,URINE NEGATIVE (Neg); NITRITES, URINE NEGATIVE (Neg); OCCULT BLOOD,URINE NEGATIVE (Neg); PROTEIN,URINE NEGATIVE (Neg); UROBILINOGEN,URINE 0.2 E.U/dL (0.2-1.0)
[2020-03-16 09:59] LABS: UA COLLECTION TYPE VOIDED
[2020-03-16 10:12] LABS: ALANINE AMINOTRANSFERASE 17 U/L (12-78); ALBUMIN 3.3 G/DL (3.4-5.0); ALBUMIN/GLOBULIN RATIO 0.8 (1.1-1.5); ALKALINE PHOSPHATASE 71 IU/L (46-116); ANION GAP 7 (8-16); ASPARTATE AMINO TRANSFERASE 21 U/L (10-37); BILIRUBIN,TOTAL 0.6 MG/DL (0.1-1.0); BLOOD UREA NITROGEN 15 MG/DL (7-18); BUN/CREATININE RATIO 18.1 (5.4-32.0); CALCIUM 8.8 MG/DL (8.5-10.1); CHLORIDE 101 MMOL/L (99-107); CREATININE 0.83 MG/DL (0.60-1.10); GLUCOSE 173 MG/DL (70-104); POTASSIUM 3.9 MMOL/L (3.5-5.1); SODIUM 137 MMOL/L (135-145); TOTAL CARBON DIOXIDE 29.3 MMOL/L (24-32); TOTAL PROTEIN 7.4 G/DL (6.4-8.2); eGFR > 90 ML/MIN
[2020-03-16 10:18] LABS: LIPASE 86 U/L (73-393)
[2020-03-16] MEDS ORDERED: ipratropium/albuterol 3ml nebule NEB ONE (10:25)
[2020-03-16] MEDS ORDERED: predniSONE 20 mg tablet PO ONE (10:25)
[2020-03-16 11:56] LABS: BASOPHILS % (AUTO) 0.7 % (0-1); EOSINOPHILS # (AUTO) 0.2 X10'3 (0-0.9); EOSINOPHILS % (AUTO) 3.9 % (0-6); HEMATOCRIT 46.3 % (42.0-52.0); LYMPHOCYTES # (AUTO) 0.6 X10'3 (1.1-4.8); LYMPHOCYTES % (AUTO) 11.3 % (21-51); MEAN CORPUSCULAR HEMOGLOBIN 27.5 PG (27.0-31.0); MEAN CORPUSCULAR HGB CONC 32.3 g/dL (33.0-36.5); MEAN CORPUSCULAR VOLUME 85.2 FL (78-98); MEAN PLATELET VOLUME 9.5 FL (7.4-10.4); MONOCYTES # (AUTO) 0.4 X10'3 (0-0.9); MONOCYTES % (AUTO) 7.9 % (2-12); NEUTROPHILS # (AUTO) 3.9 X10'3 (1.8-7.7); NEUTROPHILS % (AUTO) 76.2 % (42-75); PLATELET COUNT 145 X10'3 (140-440); RED BLOOD COUNT 5.44 X10'6 (4.70-6.10); WHITE BLOOD COUNT 5.1 X10'3 (4.5-11.0)
[2020-03-16] MEDS ORDERED: AZIT-72 PO (12:02)
[2020-03-16] MEDS ORDERED: PRED20TA PO (12:02)
[2020-03-16 12:08] VITALS: BP 166/88
== END 2020-03-16 12:34 | disposition home or self-care (01) ==
LOC: ER 08:40
DX: J44.1 Chronic obstructive pulmonary disease with (acute) exacerbation (principal); I10 Essential (primary) hypertension; E11.9 Type 2 diabetes mellitus without complications; G89.29 Other chronic pain; Z87.891 Personal history of nicotine dependence; Z95.0 Presence of cardiac pacemaker; Z98.890 Other specified postprocedural states; Z88.5 Allergy status to narcotic agent; Z88.2 Allergy status to sulfonamides; Z88.1 Allergy status to other antibiotic agents; Z88.8 Allergy status to other drugs, medicaments and biological substances; Z79.2 Long term (current) use of antibiotics; Z79.899 Other long term (current) drug therapy; Z79.01 Long term (current) use of anticoagulants
CPT/HCPCS: 36415; 71045; 74176; 80053; 81003; 83690; 83880; 84484; 85025; 93005; 94640; 99285; J7512; 94760

== ENCOUNTER 2020-05-06 05:52 | Emergency (ER) | payer MEDICARE ==
[~2020-05-06] VITALS: Ht 185.4 cm; Wt 150.0 kg
[2020-05-06] MEDS ORDERED: albuterol 2.5 MG/3 ML nebule NEB ONE (05:55)
[2020-05-06] MEDS ORDERED: morphine 4 MG/ML inj SYRINge IV ONE (06:15)
[2020-05-06 06:32] LABS: BASOPHILS % (AUTO) 0.5 % (0-1); EOSINOPHILS # (AUTO) 0.3 X10'3 (0-0.9); HEMATOCRIT 44.8 % (42.0-52.0); HEMOGLOBIN 14.5 g/dl (14.0-17.9); LYMPHOCYTES # (AUTO) 0.5 X10'3 (1.1-4.8); LYMPHOCYTES % (AUTO) 9.4 % (21-51); MEAN CORPUSCULAR HEMOGLOBIN 28.2 PG (27.0-31.0); MEAN CORPUSCULAR HGB CONC 32.4 g/dL (33.0-36.5); MEAN CORPUSCULAR VOLUME 86.8 FL (78-98); MEAN PLATELET VOLUME 9.5 FL (7.4-10.4); MONOCYTES # (AUTO) 0.4 X10'3 (0-0.9); MONOCYTES % (AUTO) 7.2 % (2-12); NEUTROPHILS # (AUTO) 4.3 X10'3 (1.8-7.7); NEUTROPHILS % (AUTO) 76.9 % (42-75); PLATELET COUNT 130 X10'3 (140-440); RED BLOOD COUNT 5.16 X10'6 (4.70-6.10); RED CELL DISTRIBUTION WIDTH 15.7 % (11.5-14.5); WHITE BLOOD COUNT 5.6 X10'3 (4.5-11.0)
[2020-05-06 06:38] LABS: ALANINE AMINOTRANSFERASE 33 U/L (12-78); ALBUMIN 3.6 G/DL (3.4-5.0); ALKALINE PHOSPHATASE 66 IU/L (46-116); ANION GAP 5 (8-16); ASPARTATE AMINO TRANSFERASE 25 U/L (10-37); BILIRUBIN,TOTAL 0.7 MG/DL (0.1-1.0); BLOOD UREA NITROGEN 17 MG/DL (7-18); BUN/CREATININE RATIO 18.5 (5.4-32.0); CALCIUM 8.9 MG/DL (8.5-10.1); CHLORIDE 101 MMOL/L (99-107); CREATININE 0.92 MG/DL (0.60-1.10); GLUCOSE 168 MG/DL (70-104); POTASSIUM 4.4 MMOL/L (3.5-5.1); SODIUM 135 MMOL/L (135-145); TOTAL CARBON DIOXIDE 28.8 MMOL/L (24-32); TOTAL PROTEIN 7.3 G/DL (6.4-8.2); eGFR 81 ML/MIN
[2020-05-06] MEDS ORDERED: HYDROmorphone 1 mg/ml syringe IV ONE (07:25)
[2020-05-06 10:12] VITALS: BP 120/79
== END 2020-05-06 10:15 | disposition home or self-care (01) ==
LOC: ER 05:52
DX: M79.674 Pain in right toe(s) (principal); R06.02 Shortness of breath; G89.29 Other chronic pain; E11.42 Type 2 diabetes mellitus with diabetic polyneuropathy; I10 Essential (primary) hypertension; J44.9 Chronic obstructive pulmonary disease, unspecified; Z98.890 Other specified postprocedural states; Z88.5 Allergy status to narcotic agent; Z88.2 Allergy status to sulfonamides; Z88.8 Allergy status to other drugs, medicaments and biological substances; Z79.899 Other long term (current) drug therapy
CPT/HCPCS: 36415; 71045; 80053; 84484; 85025; 93005; 94640; 96374; 96375; 99285; J1170; J2270; 94760

== ENCOUNTER 2020-07-18 21:08 | Emergency (ER) | payer MEDICARE ==
[~2020-07-18] VITALS: Ht 185.4 cm; Wt 146.1 kg
[2020-07-18 21:11] VITALS: BP 129/70
[2020-07-18] MEDS ORDERED: oxyCODONE/APAP 10/325mg tablet PO ONE (23:15)
== END 2020-07-18 23:30 | disposition home or self-care (01) ==
LOC: ER 21:09
DX: G89.29 Other chronic pain (principal); M79.675 Pain in left toe(s); I10 Essential (primary) hypertension; J44.9 Chronic obstructive pulmonary disease, unspecified; E11.42 Type 2 diabetes mellitus with diabetic polyneuropathy; Z95.0 Presence of cardiac pacemaker; Z98.890 Other specified postprocedural states; Z88.5 Allergy status to narcotic agent; Z79.01 Long term (current) use of anticoagulants; Z79.899 Other long term (current) drug therapy
CPT/HCPCS: 99284

== ENCOUNTER 2020-07-25 04:29 | Emergency (ER) | payer MEDICARE ==
[~2020-07-25] VITALS: Ht 185.4 cm; Wt 145.4 kg
[2020-07-25 04:34] VITALS: BP 150/93
[2020-07-25] MEDS ORDERED: cephalexin 500mg capsule PO ONE (05:00)
[2020-07-25] MEDS ORDERED: CEPH500C5 PO (05:02)
== END 2020-07-25 05:13 | disposition home or self-care (01) ==
LOC: ER 04:30
DX: L03.115 Cellulitis of right lower limb (principal); E11.42 Type 2 diabetes mellitus with diabetic polyneuropathy; I10 Essential (primary) hypertension; J43.9 Emphysema, unspecified; G89.29 Other chronic pain; Z95.0 Presence of cardiac pacemaker; Z98.890 Other specified postprocedural states; Z72.89 Other problems related to lifestyle; Z88.5 Allergy status to narcotic agent; Z88.2 Allergy status to sulfonamides; Z88.8 Allergy status to other drugs, medicaments and biological substances; Z79.01 Long term (current) use of anticoagulants
CPT/HCPCS: 99284

== ENCOUNTER 2020-08-09 05:38 | Emergency (ER) | payer MEDICARE ==
[~2020-08-09] VITALS: Ht 185.4 cm; Wt 140.9 kg
[2020-08-09 06:06] VITALS: BP 165/90
== END 2020-08-09 06:07 | disposition home or self-care (01) ==
LOC: ER 05:39
DX: I87.8 Other specified disorders of veins (principal); L30.8 Other specified dermatitis; E11.42 Type 2 diabetes mellitus with diabetic polyneuropathy; I10 Essential (primary) hypertension; J44.9 Chronic obstructive pulmonary disease, unspecified; G89.29 Other chronic pain; Z95.0 Presence of cardiac pacemaker; Z98.890 Other specified postprocedural states; Z88.5 Allergy status to narcotic agent; Z79.01 Long term (current) use of anticoagulants; Z79.899 Other long term (current) drug therapy
CPT/HCPCS: 99284

== ENCOUNTER 2021-03-06 14:03 | Day surgery (SDC) | payer MEDICARE ==
[2021-02-27 12:38] LABS: BASOPHILS % (AUTO) 0.6 % (0-1); EOSINOPHILS # (AUTO) 0.3 X10'3 (0-0.9); EOSINOPHILS % (AUTO) 7.1 % (0-6); LYMPHOCYTES # (AUTO) 0.5 X10'3 (1.1-4.8); LYMPHOCYTES % (AUTO) 13.9 % (21-51); MEAN CORPUSCULAR HEMOGLOBIN 28.2 PG (27.0-31.0); MEAN CORPUSCULAR HGB CONC 32.1 g/dL (33.0-36.5); MEAN CORPUSCULAR VOLUME 87.9 FL (78-98); MEAN PLATELET VOLUME 9.7 FL (7.4-10.4); MONOCYTES # (AUTO) 0.4 X10'3 (0-0.9); MONOCYTES % (AUTO) 9.4 % (2-12); NEUTROPHILS # (AUTO) 2.6 X10'3 (1.8-7.7); PRE OP HEMATOCRIT 43.8 % (42.0-52.0); PRE OP HEMOGLOBIN 14.1 g/dL (14.0-17.9); PRE OP PLATELET COUNT 145 X10'3 (140-440); RED BLOOD COUNT 4.98 X10'6 (4.70-6.10); RED CELL DISTRIBUTION WIDTH 15.8 % (11.5-14.5)
[2021-02-27 13:12] LABS: ALBUMIN 3.5 G/DL (3.4-5.0); ALBUMIN/GLOBULIN RATIO 0.8 (1.1-1.5); ALKALINE PHOSPHATASE 62 IU/L (46-116); BLOOD UREA NITROGEN 20 MG/DL (7-18); BUN/CREATININE RATIO 21.7 (5.4-32.0); CALCIUM 9.3 MG/DL (8.5-10.1); CHLORIDE 104 MMOL/L (99-107); CREATININE 0.92 MG/DL (0.60-1.10); PRE OP ALT 21 U/L (30-65); PRE OP ANION GAP 8 (8-16); PRE OP AST 18 U/L (10-37); PRE OP BILIRUB, TOTAL 0.7 MG/DL (0.0-1.0); PRE OP GLUCOSE 73 MG/DL (70-104); PRE OP POTASSIUM 4.4 MMOL/L (3.4-5.1); PRE OP SODIUM 142 MMOL/L (135-145); TOTAL CARBON DIOXIDE 30.5 MMOL/L (24-32); TOTAL PROTEIN 7.7 G/DL (6.4-8.2); eGFR 81 ML/MIN
[2021-03-05 15:24] VITALS: BP 162/79
[2021-03-06] VITALS (10 sets, daily range): BP systolic 138–169; BP diastolic 64–74
[~2021-03-06] VITALS: Ht 185.4 cm; Wt 150.3 kg
--- NOTE | 2021-03-06 05:15 | NUR ---
PT. VOIDED IN URINAL 150 ML STRAW COLORED URINE. Addendum: 03/06/21 at 1810 by Regina Lee RN Amended: Links added.
[~2021-03-06 14:03] MED LIST changes: +ACYC-126 PO; -ALB0.5UD IH; -BACL10TA2 PO; +BACL10TA7 PO; +DOCUMENT DATE & TIME OF BETA-BLOCKER PO ONE; -DULO60CA45 PO; -FLO0.4C PO; +FURO40TA4 PO; +GABA-530 PO; -LISI-604 PO; +LISI-790 PO; -PIOG30TA71 PO; +PIOG45TA65 PO; -PRED20TA PO; +WARF2.5T82 PO; +ceFAZolin/D5W- 1GM premix 50 ML IV ONE; +cefazolin/dext.iso 2gm/100ml 100 ML IV ONE; +famotidine 20mg tablet PO ONE; +ringers solution, lacted 1,000 ML IV SCH
[2021-03-06] MEDS ORDERED: albuterol 2.5 MG/3 ML nebule NEB ONE (16:40)
--- NOTE | 2021-03-06 16:53 | NUR ---
RT IN TO GIVE BREATHING TREATMENT FOR SOME NOTED SOB WHILE CHANGING POSITIONS AND SITTING UP IN CHAIR. BG 75 RECHECKED. NO ASE NOTED AT THIS TIME. WILL CONTINUE TO MONITOR. PT. UP IN CHAIR AT BEDSIDE DUE TO DISCOMFORT IN BACK. IV CONTINUES TKO AT 30 ML/HR IN RIGHT HAND 20G IV. CDI. Addendum: 03/06/21 at 1656 by Regina Lee RN Amended: Links added.
--- NOTE | 2021-03-06 17:31 | NUR ---
SPOKE WITH ANESTHESIA RE: PT. BG LEVEL OF 75 AND HIS RISING PAIN IN HIS FEET. NO NEW ORDERS WERE GIVEN. TEXTED ANESTHESIA AGAIN TO DIRECTLY REQUEST PAIN MEDICATION DUE TO INCREASING IRRITABILITY. Addendum: 03/06/21 at 1738 by Regina Lee RN Amended: Links added.
--- NOTE | 2021-03-06 17:38 | NUR ---
NEW ORDER FOR 1 PRANAV 5/325 ONE TIME FOR PT PER MD. Addendum: 03/06/21 at 1741 by Regina Lee RN Amended: Links added.
[2021-03-06] MEDS ORDERED: HYDROcodone/acetaminophen 5mg/325mg tablet PO ONE (17:40)
--- NOTE | 2021-03-06 18:07 | NUR ---
PT. TRANSFERRED TO PACU. REPORTED OFF TO [facility]. BG 81. PT. GIVEN NORCO 5/325 FOR PAIN BY KEELEY. TOLERATED WELL. PT. REPOSITIONED IN CHAIR IN VIEW OF NURSES STATION. LR CONTINUES AT 30 ML/HR. PT. STATES, "THAT'S BETTER". Addendum: 03/06/21 at 1810 by Regina Lee RN Amended: Links added.
[2021-03-06] MEDS ORDERED: ondansetron/PF 4mg/2ml inj IV PRN (18:10)
[2021-03-06] MEDS ORDERED: proCHLORperazine 10 MG/2 ml inj IV PRN (18:10)
[2021-03-06] MEDS ORDERED: meperidine/PF 25mg/ml syringe IV PRN ×3 (18:10)
[2021-03-06] MEDS ORDERED: fentaNYL/PF 50MCG/1 ML 2ML syringe IV ONE (18:10)
[2021-03-06] MEDS ORDERED: ringers solution, lacted 1,000 ML IV SCH (18:10)
[2021-03-06] MEDS ORDERED: BUPIVAcaine/PF 2.5 mg/ml (0.25%) 30ml vial ONE (18:35)
[2021-03-06] MEDS ORDERED: bacitracin 15gm ointment TP ONE (18:35)
[2021-03-06] MEDS ORDERED: MIDAZolam 1 MG/ML 5ML VIAL ONE (18:57)
[2021-03-06] MEDS ORDERED: ondansetron/PF 4mg/2ml inj ONE (18:57)
[2021-03-06] MEDS ORDERED: LIDOcaine 1%/PF 5ML 10 MG/ML VIAL ONE (18:57)
[2021-03-06] MEDS ORDERED: desflurane 240ml liquid inh. IH ONE (18:57)
[2021-03-06] MEDS ORDERED: fentaNYL /PF 50mcg/ml 5ml ampule ONE (18:57)
[2021-03-06] MEDS ORDERED: propofol inj 20 ML IV ONE (18:58)
[2021-03-06] MEDS ORDERED: ROPIVAcaine 0.5% (5mg/ml) 30ml vial ONE (19:18)
[2021-03-06] MEDS ORDERED: dexamethasone sod phosphate 4mg/ml inj. ONE (19:18)
--- NOTE | 2021-03-06 20:47 | NUR ---
Received from OR via [facility], accompanied by Anesthesiologist DR YAN and report given by Anesthesiolgist. PT PLACED ON O2 AND MONITOR, S/P REVSION ARTHRODESIS LEFT FOOT, GENERAL ANESTH WITH LEFT ANKLE BLOCK, PT HAS LEFT LOWER LEG/FOOT SPLINT DRESSING CDI, CAP REFIL <3 SEC, PT'S LEFT LEG PLACED ON LEG ELEVATOR, PT DENIES ANY PAIN OR NAUSEA AT THIS TIME. 20G PIV IN RIGHT HAND. WILL CONTINUE TO ASSESS.
== END 2021-03-06 22:27 | disposition home or self-care (01) ==
LOC: PAS 14:03
PROVIDERS: ATTEND Podiatrist Foot & Ankle Surgery
DX: M96.0 Pseudarthrosis after fusion or arthrodesis (principal); E11.40 Type 2 diabetes mellitus with diabetic neuropathy, unspecified; E78.5 Hyperlipidemia, unspecified; E11.10 Type 2 diabetes mellitus with ketoacidosis without coma; M17.0 Bilateral primary osteoarthritis of knee; G89.4 Chronic pain syndrome; G89.18 Other acute postprocedural pain; J44.9 Chronic obstructive pulmonary disease, unspecified; G47.30 Sleep apnea, unspecified; I10 Essential (primary) hypertension; F32.9 Major depressive disorder, single episode, unspecified; E66.01 Morbid (severe) obesity due to excess calories; Z68.41 Body mass index [BMI] 40.0-44.9, adult; Z86.73 Personal history of transient ischemic attack (TIA), and cerebral infarction without residual deficits; Z88.2 Allergy status to sulfonamides; Z88.1 Allergy status to other antibiotic agents; Z88.8 Allergy status to other drugs, medicaments and biological substances; Z95.0 Presence of cardiac pacemaker; Z98.890 Other specified postprocedural states; Z79.84 Long term (current) use of oral hypoglycemic drugs; Z79.899 Other long term (current) drug therapy; Z87.891 Personal history of nicotine dependence; Z82.49 Family history of ischemic heart disease and other diseases of the circulatory system; Z80.9 Family history of malignant neoplasm, unspecified; Y83.8 Other surgical procedures as the cause of abnormal reaction of the patient, or of later complication, without mention of misadventure at the time of the procedure
CPT/HCPCS: 20900; 28750; 36415; 64447; 64450; 73620; 76000; 76942; 80053; 82948; 85025; 85610; 93005; 94640; 94760; A6223; C1713; J0690; J1100; J2250; J2405; J2704; J3010; J3490; J7120; A4215; A4618; A6449; A7000; J2795

== ENCOUNTER 2021-03-19 10:19 | Inpatient (IN) | payer MEDICARE ==
[~2021-03-19] VITALS: Ht 185.4 cm; Wt 150.0 kg
[~2021-03-19 10:19] MED LIST changes: -DOCUMENT DATE & TIME OF BETA-BLOCKER PO ONE; -ceFAZolin/D5W- 1GM premix 50 ML IV ONE; -cefazolin/dext.iso 2gm/100ml 100 ML IV ONE; -famotidine 20mg tablet PO ONE; -ringers solution, lacted 1,000 ML IV SCH
[2021-03-19 11:03] LABS: BASOPHILS % (AUTO) 0.7 % (0-1); EOSINOPHILS # (AUTO) 0.3 X10'3 (0-0.9); HEMATOCRIT 41.2 % (42.0-52.0); HEMOGLOBIN 13.6 g/dl (14.0-17.9); LYMPHOCYTES # (AUTO) 0.4 X10'3 (1.1-4.8); LYMPHOCYTES % (AUTO) 8.8 % (21-51); MEAN CORPUSCULAR HEMOGLOBIN 28.8 PG (27.0-31.0); MEAN CORPUSCULAR HGB CONC 33.1 g/dL (33.0-36.5); MEAN PLATELET VOLUME 9.4 FL (7.4-10.4); MONOCYTES # (AUTO) 0.5 X10'3 (0-0.9); MONOCYTES % (AUTO) 11.9 % (2-12); NEUTROPHILS # (AUTO) 3.2 X10'3 (1.8-7.7); NEUTROPHILS % (AUTO) 71.6 % (42-75); PLATELET COUNT 170 X10'3 (140-440); RED BLOOD COUNT 4.74 X10'6 (4.70-6.10); RED CELL DISTRIBUTION WIDTH 15.6 % (11.5-14.5); WHITE BLOOD COUNT 4.5 X10'3 (4.5-11.0)
[2021-03-19 11:16] LABS: ALANINE AMINOTRANSFERASE 20 U/L (12-78); ALBUMIN 3.4 G/DL (3.4-5.0); ALBUMIN/GLOBULIN RATIO 0.8 (1.1-1.5); ALKALINE PHOSPHATASE 78 IU/L (46-116); ANION GAP 4 (8-16); ASPARTATE AMINO TRANSFERASE 18 U/L (10-37); BILIRUBIN,TOTAL 0.6 MG/DL (0.1-1.0); BLOOD UREA NITROGEN 19 MG/DL (7-18); BUN/CREATININE RATIO 20.4 (5.4-32.0); CHLORIDE 101 MMOL/L (99-107); CREATININE 0.93 MG/DL (0.60-1.10); GLUCOSE 116 MG/DL (70-104); POTASSIUM 4.3 MMOL/L (3.5-5.1); SODIUM 138 MMOL/L (135-145); TOTAL CARBON DIOXIDE 32.7 MMOL/L (24-32); TOTAL PROTEIN 7.7 G/DL (6.4-8.2); eGFR 80 ML/MIN
[2021-03-19] MEDS ORDERED: acetaminophen 325mg tablet PO ONE (11:35)
[2021-03-19] MEDS ORDERED: GABA300C PO (13:32)
[2021-03-19] MEDS ORDERED: CHOL500049 PO (13:32)
[2021-03-19] MEDS ORDERED: diphenhydrAMINE 25mg capsule PO PRN (13:35)
[2021-03-19] MEDS ORDERED: CefTRIAXone/D5W-Rocephin 1gm 50 ML IV ONE (13:35)
[2021-03-19] MEDS ORDERED: HYDROcodone/acetaminophen 5mg/325mg tablet PO PRN (13:35)
[2021-03-19] MEDS ORDERED: potassium Cl 20 mEq SR tablet PO PRN ×2 (13:35)
[2021-03-19] MEDS ORDERED: magnesium 4gm in 100ml NS 100 ML IV PRN (13:35)
[2021-03-19] MEDS ORDERED: magnesium Cl slow-release 64mg tablet PO PRN (13:35)
[2021-03-19] MEDS ORDERED: ondansetron/PF 4mg/2ml inj IV PRN (13:35)
[2021-03-19] MEDS ORDERED: HYDROmorphone inj. 0.5 MG/0.5 ML DISP.SYRIN IV PRN (13:35)
[2021-03-19] MEDS ORDERED: potassium Cl 40MEQ/1/2NS 520ml 520 ML IV PRN ×2 (13:35)
[2021-03-19] MEDS ORDERED: bisacodyl 10mg suppository rectal RC PRN (13:35)
[2021-03-19] MEDS ORDERED: magnesium 2GM in 50ml NS 50 ML IV PRN (13:35)
[2021-03-19] MEDS ORDERED: mag hydrox/Alum hydrox/simeth 30ml oral suspension PO PRN (13:35)
[2021-03-19] MEDS ORDERED: metoclopramide 5 mg/ml inj IV PRN (13:35)
[2021-03-19] MEDS ORDERED: magnesium hydroxide 30ml (MOM) UD suspension PO PRN (13:35)
[2021-03-19] MEDS ORDERED: acetaminophen 325mg tablet PO PRN ×2 (13:35)
[2021-03-19 13:54] LABS: PARTIAL THROMBOPLASTIN TIME 42 SECONDS (22-32)
[2021-03-19 14:50] LABS: HEMOGLOBIN A1C 6.5 % (4.5-6.2)
[2021-03-19] MEDS: vancomycin/NS 1 GM ADD-VANTAGE 250 ML IV SCH (15:20)
--- NOTE | 2021-03-19 16:50 | NUR ---
Patient in room [facility] 346. I have received report from Chris DAVILA ER and had the opportunity to ask questions and assume patient care. Pt A&Ox4, no c/o, no s/sx distress at this time. VSS. Pt oriented to room/unit, questions answered, will continue to monitor.
[2021-03-19 17:00] VITALS: BP 119/55
--- NOTE | 2021-03-19 17:45 | NUR ---
Pt's BG 55, no c/o, no s/sx distress, juice given x2. Phone call to Dr Craft, orders received. will continue to monitor.
[2021-03-19] MEDS: normal saline 1000ml 1,000 ML IV SCH (17:50)
[2021-03-19] MEDS: HYDROcodone/acetaminophen 10/325mg tab PO PRN (17:59)
[2021-03-19 18:00] VITALS: BP 120/65
--- NOTE | 2021-03-19 18:05 | NUR ---
Pt's Blood glucose 77, continues to have no s/sx of distress, no c/o. will continue to monitor.
[2021-03-19] MEDS ORDERED: MESSAGE TO PHARMACY PO ONE (18:30)
[2021-03-19] MEDS ORDERED: dextrose ORAL solution 15 GM/59 ML bottle PO PRN ×2 (18:30)
[2021-03-19] MEDS ORDERED: insulin Lispro (HumaLOG) vial - multi-dose SQ SCH (18:30)
[2021-03-19] MEDS ORDERED: dextrose 50%-water 50ml dispensing syringe IV PRN ×2 (18:30)
[2021-03-19] MEDS ORDERED: glucagon, human recombinant 1mg kit SUBCUT PRN (18:30)
--- NOTE | 2021-03-19 18:52 | NUR ---
Patient in room [facility] 346. I have received report from CED DAVILA and had the opportunity to ask questions and assume patient care.
[2021-03-19] MEDS: K and/or MAG REPLACEMENT MC SCH (19:41)
[2021-03-19] MEDS ORDERED: insulin glargine (Lantus) pen - multi-dose SQ SCH (21:00)
[2021-03-19] MEDS ORDERED: temazepam 15mg capsule PO PRN (21:00)
--- NOTE | 2021-03-19 23:38 | NUR ---
Student documentation: I have reviewed all interventions, assessments performed and documented by Renetta Lyles. Student Medication Administration: For this medication-pass time frame, all medication were reviewed, dispensed, administered and documented per hospital policy by Renetta Lyles.
[2021-03-19 23:49] VITALS: BP 96/60
[2021-03-20] MEDS: normal saline 1000ml 1,000 ML IV SCH (00:29)
[2021-03-20] MEDS: vancomycin/NS 1 GM ADD-VANTAGE 250 ML IV SCH ×2 (02:23→15:18)
[2021-03-20] MEDS: HYDROcodone/acetaminophen 10/325mg tab PO PRN ×5 (04:37→22:38)
[2021-03-20 06:10] LABS: BASOPHILS % (AUTO) 0.5 % (0-1); EOSINOPHILS # (AUTO) 0.3 X10'3 (0-0.9); EOSINOPHILS % (AUTO) 7.1 % (0-6); HEMATOCRIT 47.2 % (42.0-52.0); HEMOGLOBIN 15.3 g/dl (14.0-17.9); LYMPHOCYTES # (AUTO) 0.5 X10'3 (1.1-4.8); MEAN CORPUSCULAR HEMOGLOBIN 28.6 PG (27.0-31.0); MEAN CORPUSCULAR HGB CONC 32.6 g/dL (33.0-36.5); MEAN PLATELET VOLUME 9.4 FL (7.4-10.4); MONOCYTES # (AUTO) 0.4 X10'3 (0-0.9); MONOCYTES % (AUTO) 8.2 % (2-12); NEUTROPHILS # (AUTO) 3.4 X10'3 (1.8-7.7); NEUTROPHILS % (AUTO) 74.2 % (42-75); PLATELET COUNT 145 X10'3 (140-440); RED BLOOD COUNT 5.36 X10'6 (4.70-6.10); RED CELL DISTRIBUTION WIDTH 15.6 % (11.5-14.5); WHITE BLOOD COUNT 4.6 X10'3 (4.5-11.0)
--- NOTE | 2021-03-20 06:29 | NUR ---
Problems reprioritized. Patient report given, questions answered & plan of care reviewed with LI DAVILA.
[2021-03-20 06:38] LABS: PARTIAL THROMBOPLASTIN TIME 41 SECONDS (22-32)
[2021-03-20 06:54] LABS: ALANINE AMINOTRANSFERASE 19 U/L (12-78); ALBUMIN 3.5 G/DL (3.4-5.0); ALBUMIN/GLOBULIN RATIO 0.8 (1.1-1.5); ALKALINE PHOSPHATASE 69 IU/L (46-116); ANION GAP 11 (8-16); ASPARTATE AMINO TRANSFERASE 24 U/L (10-37); BILIRUBIN,TOTAL 0.8 MG/DL (0.1-1.0); BLOOD UREA NITROGEN 16 MG/DL (7-18); BUN/CREATININE RATIO 19.5 (5.4-32.0); CHLORIDE 100 MMOL/L (99-107); CREATININE 0.82 MG/DL (0.60-1.10); GLUCOSE 70 MG/DL (70-104); MAGNESIUM 2.1 MG/DL (1.5-2.4); SODIUM 138 MMOL/L (135-145); TOTAL PROTEIN 8.1 G/DL (6.4-8.2); eGFR > 90 ML/MIN
[2021-03-20 07:00] VITALS: BP 123/98
--- NOTE | 2021-03-20 07:08 | NUR ---
Patient in room [facility] 346. I have received report from Marbella DAVILA and had the opportunity to ask questions and assume patient care.
[2021-03-20] MEDS: K and/or MAG REPLACEMENT MC SCH ×2 (08:00→19:42)
[2021-03-20] MEDS ORDERED: CefTRIAXone/D5W-Rocephin 1gm 50 ML IV SCH (08:00)
--- NOTE | 2021-03-20 08:05 | NUR ---
PAGER ID: [phone] MESSAGE: Roxanne-Surg [phone] Re: [place] [id number] please call patient very upset not getting gabapentin and coumadin very painful Addendum: 03/20/21 at 0806 by Roxanne Estrella RN Dr Jacob called back and is aware will address patient medication at this time
[2021-03-20] MEDS: gabapentin 300mg capsule PO SCH ×3 (08:20→20:45)
[2021-03-20] MEDS ORDERED: furosemide 40mg/4ml inj IV ONE (08:25)
[2021-03-20] MEDS: acyclovir 200 MG capsule PO SCH (10:01)
[2021-03-20] MEDS: allopurinol 300 MG tablet PO SCH (10:02)
[2021-03-20] MEDS: metoprolol tartrate 25mg tablet PO SCH ×2 (10:02→20:46)
[2021-03-20] MEDS: baclofen 10mg tablet PO SCH ×2 (10:03→20:45)
[2021-03-20] MEDS: lisinopril 5mg tablet PO SCH (10:03)
[2021-03-20 11:00] VITALS: BP 146/67
[2021-03-20] MEDS: pioglitazone 45mg tablet PO SCH (12:22)
--- NOTE | 2021-03-20 14:16 | NUR ---
DM consult re:"non-healing wound": Pt A1c 6.5%, DM education not warranted at this time given well controlled. Per EMR, pt with diabetic ulcer to left foot however pending [facility] assessment at this time. [employer] biomedical engineering internship met with pt at bedside for verbal/written high protein education. Pt PO intake 100% on heart healthy/carb controlled diet; pt denied double protein with meals, but agreeable to cottage cheese with fruit, yogurt and hard boiled eggs instead of scrambled eggs WB; d/w dietary. Will continue to follow. Addendum: 03/20/21 at [address] Amended: Links added. Addendum: 03/20/21 at [address] I have reviewed and agree with note by advisory intern. Liliana Gaston RD
[2021-03-20 18:00] VITALS: BP 116/64
--- NOTE | 2021-03-20 18:24 | NUR ---
Problems reprioritized. Patient report given, questions answered & plan of care reviewed with Prudence RN.
--- NOTE | 2021-03-20 18:55 | NUR ---
Patient in room [facility] 346. I have received report from LI DAVILA and had the opportunity to ask questions and assume patient care.
[2021-03-20] MEDS ORDERED: furosemide 40mg tablet PO SCH (20:00)
[2021-03-20] MEDS: atorvastatin 20mg tablet PO SCH (20:45)
[2021-03-20] MEDS ORDERED: warfarin 3mg tablet PO ONE (21:00)
[2021-03-21 00:52] VITALS: BP 128/75
[2021-03-21] MEDS ORDERED: VANCOMYCIN LEVEL IV ONE (01:30)
[2021-03-21 02:15] LABS: PARTIAL THROMBOPLASTIN TIME 44 SECONDS (22-32); WHITE BLOOD COUNT 4.5 X10'3 (4.5-11.0)
[2021-03-21 02:17] LABS: ALANINE AMINOTRANSFERASE 23 U/L (12-78); ALBUMIN 3.5 G/DL (3.4-5.0); ALBUMIN/GLOBULIN RATIO 0.8 (1.1-1.5); ALKALINE PHOSPHATASE 70 IU/L (46-116); ANION GAP 5 (8-16); ASPARTATE AMINO TRANSFERASE 23 U/L (10-37); BASOPHILS % (AUTO) 0.9 % (0-1); BILIRUBIN,TOTAL 0.6 MG/DL (0.1-1.0); BLOOD UREA NITROGEN 20 MG/DL (7-18); BUN/CREATININE RATIO 21.3 (5.4-32.0); CALCIUM 9.1 MG/DL (8.5-10.1); CHLORIDE 100 MMOL/L (99-107); CREATININE 0.94 MG/DL (0.60-1.10); EOSINOPHILS # (AUTO) 0.4 X10'3 (0-0.9); EOSINOPHILS % (AUTO) 7.9 % (0-6); GLUCOSE 100 MG/DL (70-104); HEMATOCRIT 43.1 % (42.0-52.0); LYMPHOCYTES # (AUTO) 0.4 X10'3 (1.1-4.8); LYMPHOCYTES % (AUTO) 9.9 % (21-51); MEAN CORPUSCULAR HEMOGLOBIN 28.5 PG (27.0-31.0); MEAN CORPUSCULAR HGB CONC 32.6 g/dL (33.0-36.5); MEAN CORPUSCULAR VOLUME 87.5 FL (78-98); MEAN PLATELET VOLUME 9.8 FL (7.4-10.4); MONOCYTES # (AUTO) 0.4 X10'3 (0-0.9); MONOCYTES % (AUTO) 9.5 % (2-12); NEUTROPHILS # (AUTO) 3.2 X10'3 (1.8-7.7); NEUTROPHILS % (AUTO) 71.8 % (42-75); PLATELET COUNT 172 X10'3 (140-440); POTASSIUM 4.2 MMOL/L (3.5-5.1); RED BLOOD COUNT 4.93 X10'6 (4.70-6.10); RED CELL DISTRIBUTION WIDTH 14.9 % (11.5-14.5); SODIUM 138 MMOL/L (135-145); TOTAL CARBON DIOXIDE 32.8 MMOL/L (24-32); TOTAL PROTEIN 7.9 G/DL (6.4-8.2); VANCOMYCIN,TROUGH 9.7 UG/ML (6.0-14.0); eGFR 79 ML/MIN
[2021-03-21] MEDS: vancomycin/NS 1 GM ADD-VANTAGE 250 ML IV SCH (02:32)
--- NOTE | 2021-03-21 06:23 | NUR ---
Problems reprioritized. Patient report given, questions answered & plan of care reviewed with RUDDY DAVILA.
--- NOTE | 2021-03-21 06:42 | NUR ---
Patient in room [facility] 346. I have received report from LOLA Tyson and had the opportunity to ask questions and assume patient care.
[2021-03-21 07:00] VITALS: BP 123/64
[2021-03-21] MEDS: K and/or MAG REPLACEMENT MC SCH ×2 (08:00→20:00)
[2021-03-21] MEDS: gabapentin 300mg capsule PO SCH ×3 (08:31→20:40)
[2021-03-21] MEDS: allopurinol 300 MG tablet PO SCH (08:31)
[2021-03-21] MEDS: furosemide 40mg/4ml inj IV SCH (08:31)
[2021-03-21] MEDS: lisinopril 5mg tablet PO SCH (08:32)
[2021-03-21] MEDS: metoprolol tartrate 25mg tablet PO SCH ×2 (08:33→20:41)
[2021-03-21] MEDS: acyclovir 200 MG capsule PO SCH (08:33)
[2021-03-21] MEDS: baclofen 10mg tablet PO SCH ×2 (08:33→20:40)
[2021-03-21] MEDS: pioglitazone 45mg tablet PO SCH (08:33)
[2021-03-21 11:00] VITALS: BP 107/60
[2021-03-21] MEDS: VANCOmycin 1250MG/NS 250ml Bag 250 ML IV SCH (14:17)
[2021-03-21 18:00] VITALS: BP 109/70
--- NOTE | 2021-03-21 18:45 | NUR ---
Problems reprioritized. Patient report given, questions answered & plan of care reviewed with LOLA Fregoso.
[2021-03-21] MEDS: temazepam 15mg capsule PO SCH (20:40)
[2021-03-21] MEDS: atorvastatin 20mg tablet PO SCH (20:41)
[2021-03-21] MEDS ORDERED: warfarin 5mg tablet PO ONE (21:00)
[2021-03-22 00:39] VITALS: BP 97/52
[2021-03-22] MEDS: VANCOmycin 1250MG/NS 250ml Bag 250 ML IV SCH ×2 (02:10→14:27)
--- NOTE | 2021-03-22 06:17 | NUR ---
Problems reprioritized. Patient report given, questions answered & plan of care reviewed with LOLA Dunlap and LOLA Hastings.
[2021-03-22 06:19] LABS: BASOPHILS % (AUTO) 0.6 % (0-1); EOSINOPHILS # (AUTO) 0.3 X10'3 (0-0.9); EOSINOPHILS % (AUTO) 6.4 % (0-6); HEMATOCRIT 42.9 % (42.0-52.0); LYMPHOCYTES # (AUTO) 0.4 X10'3 (1.1-4.8); LYMPHOCYTES % (AUTO) 10.9 % (21-51); MEAN CORPUSCULAR HEMOGLOBIN 28.6 PG (27.0-31.0); MEAN CORPUSCULAR HGB CONC 32.6 g/dL (33.0-36.5); MEAN CORPUSCULAR VOLUME 87.6 FL (78-98); MEAN PLATELET VOLUME 9.9 FL (7.4-10.4); MONOCYTES # (AUTO) 0.5 X10'3 (0-0.9); MONOCYTES % (AUTO) 11.5 % (2-12); NEUTROPHILS # (AUTO) 2.9 X10'3 (1.8-7.7); NEUTROPHILS % (AUTO) 70.6 % (42-75); PLATELET COUNT 157 X10'3 (140-440); RED CELL DISTRIBUTION WIDTH 15.4 % (11.5-14.5); WHITE BLOOD COUNT 4.1 X10'3 (4.5-11.0)
[2021-03-22 06:20] LABS: PARTIAL THROMBOPLASTIN TIME 44 SECONDS (22-32)
[2021-03-22 06:39] LABS: ALANINE AMINOTRANSFERASE 17 U/L (12-78); ALBUMIN/GLOBULIN RATIO 0.8 (1.1-1.5); ALKALINE PHOSPHATASE 62 IU/L (46-116); ANION GAP 8 (8-16); ASPARTATE AMINO TRANSFERASE 21 U/L (10-37); BILIRUBIN,TOTAL 0.6 MG/DL (0.1-1.0); BLOOD UREA NITROGEN 21 MG/DL (7-18); BUN/CREATININE RATIO 24.4 (5.4-32.0); CALCIUM 8.8 MG/DL (8.5-10.1); CHLORIDE 101 MMOL/L (99-107); CREATININE 0.86 MG/DL (0.60-1.10); GLUCOSE 128 MG/DL (70-104); MAGNESIUM 2.4 MG/DL (1.5-2.4); POTASSIUM 3.9 MMOL/L (3.5-5.1); SODIUM 137 MMOL/L (135-145); TOTAL CARBON DIOXIDE 28.2 MMOL/L (24-32); eGFR 87 ML/MIN
[2021-03-22 07:28] VITALS: BP 118/66
[2021-03-22] MEDS: pioglitazone 45mg tablet PO SCH (07:40)
[2021-03-22] MEDS: gabapentin 300mg capsule PO SCH ×3 (07:40→20:46)
[2021-03-22] MEDS: lisinopril 5mg tablet PO SCH (07:41)
[2021-03-22] MEDS: furosemide 40mg/4ml inj IV SCH ×2 (07:41→19:14)
[2021-03-22] MEDS: baclofen 10mg tablet PO SCH ×2 (07:41→19:15)
[2021-03-22] MEDS: metoprolol tartrate 25mg tablet PO SCH ×2 (07:41→19:15)
[2021-03-22] MEDS: K and/or MAG REPLACEMENT MC SCH ×2 (08:00→19:14)
[2021-03-22 11:00] VITALS: BP 120/53
[2021-03-22] MEDS: HYDROcodone/acetaminophen 10/325mg tab PO PRN ×2 (12:22→19:16)
--- NOTE | 2021-03-22 17:58 | NUR ---
Problems reprioritized. Patient report given, questions answered & plan of care reviewed with Lanny DAVILA.
--- NOTE | 2021-03-22 18:43 | NUR ---
Patient in room [facility] 346. I have received report from Venkata DAVILA and had the opportunity to ask questions and assume patient care.
[2021-03-22 19:00] VITALS: BP 123/47
[2021-03-22] MEDS: atorvastatin 20mg tablet PO SCH (20:46)
[2021-03-22] MEDS: temazepam 15mg capsule PO SCH (20:47)
[2021-03-22] MEDS ORDERED: polyethylene glycol 3350 17gm powd pack PO SCH (21:00)
[2021-03-22] MEDS ORDERED: warfarin 5mg tablet PO ONE (21:00)
[2021-03-23] VITALS: BP 91/86
[2021-03-23 00:30] VITALS: BP 109/56
[2021-03-23] MEDS: HYDROcodone/acetaminophen 10/325mg tab PO PRN ×3 (00:35→09:16)
[2021-03-23 01:00] LABS: CLARITY,URINE CLEAR (Clear); COLOR,URINE YELLOW (Yellow); GLUCOSE, URINE NEGATIVE (Neg); KETONES,URINE NEGATIVE (Neg); LEUKOCYTE ESTERASE ,URINE NEGATIVE (Neg); NITRITES, URINE NEGATIVE (Neg); OCCULT BLOOD,URINE NEGATIVE (Neg); PROTEIN,URINE NEGATIVE (Neg); UROBILINOGEN,URINE 0.2 E.U/dL (0.2-1.0)
[2021-03-23 01:01] LABS: UA COLLECTION TYPE CLN CATCH MIDSTREAM
[2021-03-23] MEDS ORDERED: VANCOMYCIN LEVEL IV ONE (01:30)
[2021-03-23] MEDS: VANCOmycin 1250MG/NS 250ml Bag 250 ML IV SCH (02:05)
[2021-03-23 02:19] LABS: ALANINE AMINOTRANSFERASE 24 U/L (12-78); ALBUMIN 3.2 G/DL (3.4-5.0); ALBUMIN/GLOBULIN RATIO 0.8 (1.1-1.5); ALKALINE PHOSPHATASE 71 IU/L (46-116); ANION GAP 7 (8-16); ASPARTATE AMINO TRANSFERASE 25 U/L (10-37); BILIRUBIN,TOTAL 0.5 MG/DL (0.1-1.0); BLOOD UREA NITROGEN 21 MG/DL (7-18); BUN/CREATININE RATIO 21.9 (5.4-32.0); CALCIUM 8.4 MG/DL (8.5-10.1); CHLORIDE 99 MMOL/L (99-107); CREATININE 0.96 MG/DL (0.60-1.10); GLUCOSE 114 MG/DL (70-104); POTASSIUM 4.1 MMOL/L (3.5-5.1); SODIUM 138 MMOL/L (135-145); TOTAL CARBON DIOXIDE 31.9 MMOL/L (24-32); TOTAL PROTEIN 7.2 G/DL (6.4-8.2); eGFR 77 ML/MIN
[2021-03-23 02:20] LABS: MAGNESIUM 1.9 MG/DL (1.5-2.4); VANCOMYCIN,TROUGH 18.3 UG/ML (6.0-14.0)
[2021-03-23 05:57] LABS: BASOPHILS % (AUTO) 0.6 % (0-1); EOSINOPHILS # (AUTO) 0.4 X10'3 (0-0.9); EOSINOPHILS % (AUTO) 9.3 % (0-6); HEMATOCRIT 43.6 % (42.0-52.0); HEMOGLOBIN 14.1 g/dl (14.0-17.9); LYMPHOCYTES # (AUTO) 0.6 X10'3 (1.1-4.8); LYMPHOCYTES % (AUTO) 14.7 % (21-51); MEAN CORPUSCULAR HEMOGLOBIN 28.4 PG (27.0-31.0); MEAN CORPUSCULAR HGB CONC 32.4 g/dL (33.0-36.5); MEAN CORPUSCULAR VOLUME 87.7 FL (78-98); MEAN PLATELET VOLUME 9.6 FL (7.4-10.4); MONOCYTES # (AUTO) 0.4 X10'3 (0-0.9); MONOCYTES % (AUTO) 11.1 % (2-12); NEUTROPHILS # (AUTO) 2.5 X10'3 (1.8-7.7); NEUTROPHILS % (AUTO) 64.3 % (42-75); PLATELET COUNT 154 X10'3 (140-440); RED BLOOD COUNT 4.97 X10'6 (4.70-6.10); RED CELL DISTRIBUTION WIDTH 15.2 % (11.5-14.5); WHITE BLOOD COUNT 3.9 X10'3 (4.5-11.0)
--- NOTE | 2021-03-23 06:16 | NUR ---
Problems reprioritized. Patient report given, questions answered & plan of care reviewed with Venkata DAVILA.
--- NOTE | 2021-03-23 06:23 | NUR ---
Patient in room [facility] 346. I have received report from Lanny DAVILA and had the opportunity to ask questions and assume patient care.
[2021-03-23 08:00] VITALS: BP 122/77
[2021-03-23] MEDS: K and/or MAG REPLACEMENT MC SCH (08:00)
[2021-03-23] MEDS: pioglitazone 45mg tablet PO SCH (08:08)
[2021-03-23] MEDS: metoprolol tartrate 25mg tablet PO SCH (08:08)
[2021-03-23] MEDS: furosemide 40mg/4ml inj IV SCH (08:09)
[2021-03-23] MEDS: gabapentin 300mg capsule PO SCH ×2 (08:09→13:39)
[2021-03-23] MEDS: baclofen 10mg tablet PO SCH (08:09)
[2021-03-23] MEDS: lisinopril 5mg tablet PO SCH (08:09)
[2021-03-23] MEDS ORDERED: FURO40TA4 PO (09:59)
--- NOTE | 2021-03-23 10:00 | NUR ---
wound care for Low Feliciano on patient. Per primary nurse, patient has no issues or concerns. Per primary nurse patient will be DC today. WOC will have nursing contact wound care for further wound care needs.
[2021-03-23 13:30] VITALS: BP 104/65
--- NOTE | 2021-03-23 13:52 | NUR ---
PAGER ID: [phone] MESSAGE: Dr. Craft, Venkata [phone], [place] 346S Do you still want the vascular study done before discharge?
[2021-03-23] MEDS ORDERED: warfarin 5mg tablet PO ONE (21:00)
== END 2021-03-23 14:41 | disposition home health service (06) | DRG 863 ==
LOC: ER 10:20 → ED HOLD 13:33 → SUR 3N 16:50
PROVIDERS: ADMIT Family Medicine; ATTEND Family Medicine
DX: T81.40XA Infection following a procedure, unspecified, initial encounter (principal); Z68.41 Body mass index [BMI] 40.0-44.9, adult; L97.429 Non-pressure chronic ulcer of left heel and midfoot with unspecified severity; L03.032 Cellulitis of left toe; E11.21 Type 2 diabetes mellitus with diabetic nephropathy; E11.42 Type 2 diabetes mellitus with diabetic polyneuropathy; E78.00 Pure hypercholesterolemia, unspecified; E78.5 Hyperlipidemia, unspecified; G89.29 Other chronic pain; I48.91 Unspecified atrial fibrillation; M54.9 Dorsalgia, unspecified; M10.9 Gout, unspecified; I11.0 Hypertensive heart disease with heart failure; I50.9 Heart failure, unspecified; E66.9 Obesity, unspecified; J43.9 Emphysema, unspecified; Y83.8 Other surgical procedures as the cause of abnormal reaction of the patient, or of later complication, without mention of misadventure at the time of the procedure; E11.621 Type 2 diabetes mellitus with foot ulcer; N40.0 Benign prostatic hyperplasia without lower urinary tract symptoms; Z79.01 Long term (current) use of anticoagulants; Z80.0 Family history of malignant neoplasm of digestive organs; Z80.1 Family history of malignant neoplasm of trachea, bronchus and lung; Z80.8 Family history of malignant neoplasm of other organs or systems; Z86.73 Personal history of transient ischemic attack (TIA), and cerebral infarction without residual deficits; Z95.0 Presence of cardiac pacemaker; Z88.2 Allergy status to sulfonamides; Z88.5 Allergy status to narcotic agent; Z87.891 Personal history of nicotine dependence; Z79.899 Other long term (current) drug therapy; Y92.89 Other specified places as the place of occurrence of the external cause; R60.0 Localized edema
CPT/HCPCS: 36415; 73630; 76937; 80053; 80202; 81003; 82948; 83036; 83605; 83735; 84145; 85025; 85610; 85730; 87040; 87081; 93926; 93971; 97116; 97161; 97530; 99285; G0378; J0696; J1170; J1815; J1940; J3370; J7030

== ENCOUNTER 2021-04-16 18:43 | Inpatient (IN) | payer MEDICARE ==
[~2021-04-16] VITALS: Ht 185.4 cm; Wt 151.9 kg
[~2021-04-16 18:43] MED LIST changes: +CHOL500049 PO; -GABA-530 PO; +GABA300C PO
[2021-04-16] MEDS ORDERED: piperacillin/tazo 3.375gm/50ml 50 ML IV ONE (20:15)
[2021-04-16] MEDS ORDERED: vancomycin/NS 1 GM ADD-VANTAGE 250 ML IV ONE (20:15)
[2021-04-16 20:34] LABS: EOSINOPHILS # (AUTO) 0.3 X10'3 (0-0.9); EOSINOPHILS % (AUTO) 6.6 % (0-6); HEMATOCRIT 40.3 % (42.0-52.0); HEMOGLOBIN 13.1 g/dl (14.0-17.9); LYMPHOCYTES # (AUTO) 0.4 X10'3 (1.1-4.8); LYMPHOCYTES % (AUTO) 9.9 % (21-51); MEAN CORPUSCULAR HEMOGLOBIN 27.9 PG (27.0-31.0); MEAN CORPUSCULAR HGB CONC 32.4 g/dL (33.0-36.5); MEAN CORPUSCULAR VOLUME 86.2 FL (78-98); MONOCYTES # (AUTO) 0.3 X10'3 (0-0.9); MONOCYTES % (AUTO) 7.7 % (2-12); NEUTROPHILS # (AUTO) 3.3 X10'3 (1.8-7.7); NEUTROPHILS % (AUTO) 74.8 % (42-75); PLATELET COUNT 178 X10'3 (140-440); RED BLOOD COUNT 4.68 X10'6 (4.70-6.10); RED CELL DISTRIBUTION WIDTH 15.4 % (11.5-14.5); WHITE BLOOD COUNT 4.4 X10'3 (4.5-11.0)
[2021-04-16 20:42] LABS: ALANINE AMINOTRANSFERASE 14 U/L (12-78); ALBUMIN 3.3 G/DL (3.4-5.0); ALBUMIN/GLOBULIN RATIO 0.8 (1.1-1.5); ALKALINE PHOSPHATASE 95 IU/L (46-116); ANION GAP 8 (8-16); ASPARTATE AMINO TRANSFERASE 19 U/L (10-37); BILIRUBIN,TOTAL 0.6 MG/DL (0.1-1.0); BLOOD UREA NITROGEN 20 MG/DL (7-18); BUN/CREATININE RATIO 19.4 (5.4-32.0); CALCIUM 8.7 MG/DL (8.5-10.1); CHLORIDE 104 MMOL/L (99-107); CREATININE 1.03 MG/DL (0.60-1.10); GLUCOSE 112 MG/DL (70-104); MAGNESIUM 1.9 MG/DL (1.5-2.4); POTASSIUM 3.7 MMOL/L (3.5-5.1); SODIUM 142 MMOL/L (135-145); TOTAL CARBON DIOXIDE 30.4 MMOL/L (24-32); TOTAL PROTEIN 7.7 G/DL (6.4-8.2); eGFR 71 ML/MIN
[2021-04-16] MEDS ORDERED: temazepam 15mg capsule PO PRN (21:00)
[2021-04-16] MEDS ORDERED: diphenhydrAMINE 50 mg/ml inj IV PRN (22:45)
[2021-04-16] MEDS ORDERED: diphenhydrAMINE 25mg capsule PO PRN (22:45)
[2021-04-16] MEDS ORDERED: acetaminophen 650mg rectal suppository RC PRN (22:45)
[2021-04-16] MEDS ORDERED: mag hydrox/Alum hydrox/simeth 30ml oral suspension PO PRN (22:45)
[2021-04-16] MEDS ORDERED: magnesium hydroxide 30ml (MOM) UD suspension PO PRN (22:45)
[2021-04-16] MEDS ORDERED: ondansetron/PF 4mg/2ml inj IV PRN (22:45)
[2021-04-16] MEDS ORDERED: bisacodyl 10mg suppository rectal RC PRN (22:45)
[2021-04-16] MEDS ORDERED: acetaminophen 325mg tablet PO PRN ×2 (22:45)
[2021-04-16] MEDS ORDERED: ondansetron 4mg rapidly disintigrating tab PO PRN (22:45)
[2021-04-16 23:11] LABS: CLARITY,URINE CLEAR (Clear); COLOR,URINE YELLOW (Yellow); GLUCOSE, URINE NEGATIVE (Neg); KETONES,URINE NEGATIVE (Neg); LEUKOCYTE ESTERASE ,URINE NEGATIVE (Neg); NITRITES, URINE NEGATIVE (Neg); OCCULT BLOOD,URINE NEGATIVE (Neg); PH,URINE 5.5 (4.8-8.0); PROTEIN,URINE NEGATIVE (Neg); UROBILINOGEN,URINE 0.2 E.U/dL (0.2-1.0)
[2021-04-16 23:12] LABS: PARTIAL THROMBOPLASTIN TIME 41 SECONDS (22-32)
[2021-04-16 23:18] LABS: UA COLLECTION TYPE NON-SPECIFIED
[2021-04-16] MEDS ORDERED: insulin Lispro (HumaLOG) vial - multi-dose SQ SCH (23:30)
[2021-04-16] MEDS ORDERED: MESSAGE TO PHARMACY PO ONE (23:30)
[2021-04-16] MEDS ORDERED: dextrose ORAL solution 15 GM/59 ML bottle PO PRN ×2 (23:30)
[2021-04-16] MEDS ORDERED: dextrose 50%-water 50ml dispensing syringe IV PRN ×2 (23:30)
[2021-04-16] MEDS ORDERED: glucagon, human recombinant 1mg kit SUBCUT PRN (23:30)
--- NOTE | 2021-04-16 23:30 | NUR ---
Patient in room ED 14. I have received report from LOLA Munoz and had the opportunity to ask questions and assume patient care.
[2021-04-16 23:45] VITALS: BP 153/82
[2021-04-17] MEDS ORDERED: HYDROcodone/acetaminophen 5mg/325mg tablet PO PRN ×2 (00:05→11:50)
--- NOTE | 2021-04-17 00:45 | NUR ---
Per phone conversation with Dr. Long, the pt is to continue home meds. Will fax list to pharmacy.
[2021-04-17] MEDS: HYDROcodone/acetaminophen 10/325mg tab PO PRN ×3 (03:29→19:44)
--- NOTE | 2021-04-17 06:44 | NUR ---
Problems reprioritized. Patient report given, questions answered & plan of care reviewed with LOLA Diaz.
--- NOTE | 2021-04-17 06:44 | NUR ---
Patient in room [facility] 340. I have received report from Dayna DAVILA and had the opportunity to ask questions and assume patient care.
[2021-04-17] MEDS ORDERED: tetanus & diphtheria toxoid (Td) vaccine 0.5ml IMVAC ONE (06:50)
[2021-04-17 07:11] LABS: BASOPHILS % (AUTO) 0.6 % (0-1); EOSINOPHILS # (AUTO) 0.3 X10'3 (0-0.9); EOSINOPHILS % (AUTO) 6.5 % (0-6); HEMOGLOBIN 13.6 g/dl (14.0-17.9); LYMPHOCYTES # (AUTO) 0.5 X10'3 (1.1-4.8); LYMPHOCYTES % (AUTO) 12.1 % (21-51); MEAN CORPUSCULAR HGB CONC 32.5 g/dL (33.0-36.5); MEAN CORPUSCULAR VOLUME 86.1 FL (78-98); MEAN PLATELET VOLUME 9.1 FL (7.4-10.4); MONOCYTES # (AUTO) 0.4 X10'3 (0-0.9); MONOCYTES % (AUTO) 9.1 % (2-12); NEUTROPHILS # (AUTO) 3.1 X10'3 (1.8-7.7); NEUTROPHILS % (AUTO) 71.7 % (42-75); PLATELET COUNT 167 X10'3 (140-440); RED BLOOD COUNT 4.87 X10'6 (4.70-6.10); RED CELL DISTRIBUTION WIDTH 15.4 % (11.5-14.5); WHITE BLOOD COUNT 4.3 X10'3 (4.5-11.0)
[2021-04-17 07:32] LABS: ALANINE AMINOTRANSFERASE 21 U/L (12-78); ALBUMIN 3.4 G/DL (3.4-5.0); ALBUMIN/GLOBULIN RATIO 0.7 (1.1-1.5); ALKALINE PHOSPHATASE 76 IU/L (46-116); ANION GAP 12 (8-16); ASPARTATE AMINO TRANSFERASE 22 U/L (10-37); BILIRUBIN,TOTAL 0.8 MG/DL (0.1-1.0); BLOOD UREA NITROGEN 19 MG/DL (7-18); BUN/CREATININE RATIO 20.4 (5.4-32.0); CALCIUM 8.9 MG/DL (8.5-10.1); CHLORIDE 101 MMOL/L (99-107); CREATININE 0.93 MG/DL (0.60-1.10); GLUCOSE 75 MG/DL (70-104); MAGNESIUM 2.2 MG/DL (1.5-2.4); POTASSIUM 3.6 MMOL/L (3.5-5.1); SODIUM 142 MMOL/L (135-145); TOTAL CARBON DIOXIDE 28.8 MMOL/L (24-32); TOTAL PROTEIN 8.3 G/DL (6.4-8.2); eGFR 79 ML/MIN
[2021-04-17 07:54] VITALS: BP 153/78
[2021-04-17] MEDS ORDERED: furosemide 10 MG/1 ML 10ml inj IV SCH (08:00)
--- NOTE | 2021-04-17 08:32 | NUR ---
DM consult: Pt with A1c 6.5%, DM education not warranted at this time. Will continue to follow. Addendum: 04/17/21 at [address] Amended: Links added.
[2021-04-17] MEDS: vancomycin/NS 1 GM ADD-VANTAGE 250 ML IV SCH ×3 (09:00→23:20)
[2021-04-17] MEDS: pantoprazole 40mg Tablet.DR PO SCH (09:22)
[2021-04-17] MEDS: docusate sod 100mg capsule PO SCH ×2 (09:22→19:43)
[2021-04-17] MEDS: piperacillin/tazo 4.5gm/100ml 100 ML IV SCH ×2 (09:23→19:56)
[2021-04-17 11:31] VITALS: BP 133/76
[2021-04-17] MEDS: gabapentin 300mg capsule PO SCH ×2 (12:27→19:43)
[2021-04-17] MEDS: furosemide 40mg tablet PO SCH ×2 (13:00→19:44)
--- NOTE | 2021-04-17 18:33 | NUR ---
Problems reprioritized. Patient report given, questions answered & plan of care reviewed with Taryn DAVILA.
--- NOTE | 2021-04-17 18:45 | NUR ---
Patient in room [facility] 340. I have received report from ABE DAVILA and had the opportunity to ask questions and assume patient care. Addendum: 04/17/21 at 1845 by Taryn Bermudez RN Amended: Links added.
[2021-04-17 19:00] VITALS: BP 153/70
[2021-04-17] MEDS: baclofen 10mg tablet PO SCH (19:43)
[2021-04-17] MEDS: metoprolol tartrate 25mg tablet PO SCH (19:50)
[2021-04-17] MEDS: atorvastatin 20mg tablet PO SCH (20:01)
[2021-04-17] MEDS ORDERED: warfarin 5mg tablet PO ONE (21:00)
[2021-04-17] MEDS: insulin glargine (Lantus) pen - multi-dose SQ SCH (21:00)
[2021-04-18] VITALS: BP 150/70
--- NOTE | 2021-04-18 01:55 | NUR ---
medicated for pain with po norco and then back in bed and dressing to right lower leg changed. cream on left leg scabs clean and dry. pt back up in the chair stated pain worse laying in bed pulls on lower back with his toe to left foot. teaching done on the importance of elevating the leg. pt insistent "makes pain to leg worse only helps the swelling ",per his words.
[2021-04-18] MEDS: HYDROcodone/acetaminophen 10/325mg tab PO PRN ×2 (02:06→23:30)
--- NOTE | 2021-04-18 06:24 | NUR ---
Problems reprioritized. Patient report given, questions answered & plan of care reviewed with JASEN DAVILA. Addendum: 04/18/21 at 0624 by Taryn Bermudez RN Amended: Links added.
[2021-04-18 07:00] VITALS: BP 120/60
--- NOTE | 2021-04-18 07:08 | NUR ---
Patient in room [facility] 340. I have received report from BRIAN DAVILA and had the opportunity to ask questions and assume patient care.
[2021-04-18 07:10] LABS: BASOPHILS % (AUTO) 0.7 % (0-1); EOSINOPHILS # (AUTO) 0.3 X10'3 (0-0.9); EOSINOPHILS % (AUTO) 6.6 % (0-6); HEMOGLOBIN 13.1 g/dl (14.0-17.9); LYMPHOCYTES # (AUTO) 0.5 X10'3 (1.1-4.8); MEAN CORPUSCULAR HEMOGLOBIN 27.9 PG (27.0-31.0); MEAN CORPUSCULAR HGB CONC 32.8 g/dL (33.0-36.5); MEAN CORPUSCULAR VOLUME 85.3 FL (78-98); MEAN PLATELET VOLUME 8.4 FL (7.4-10.4); MONOCYTES # (AUTO) 0.5 X10'3 (0-0.9); MONOCYTES % (AUTO) 11.4 % (2-12); NEUTROPHILS # (AUTO) 3.3 X10'3 (1.8-7.7); NEUTROPHILS % (AUTO) 71.3 % (42-75); PLATELET COUNT 163 X10'3 (140-440); RED CELL DISTRIBUTION WIDTH 15.4 % (11.5-14.5); WHITE BLOOD COUNT 4.7 X10'3 (4.5-11.0)
[2021-04-18 07:32] LABS: ALANINE AMINOTRANSFERASE 21 U/L (12-78); ALBUMIN/GLOBULIN RATIO 0.7 (1.1-1.5); ALKALINE PHOSPHATASE 64 IU/L (46-116); ANION GAP 10 (8-16); ASPARTATE AMINO TRANSFERASE 23 U/L (10-37); BILIRUBIN,TOTAL 0.9 MG/DL (0.1-1.0); BLOOD UREA NITROGEN 19 MG/DL (7-18); BUN/CREATININE RATIO 17.6 (5.4-32.0); CALCIUM 8.6 MG/DL (8.5-10.1); CHLORIDE 99 MMOL/L (99-107); CREATININE 1.08 MG/DL (0.60-1.10); GLUCOSE 89 MG/DL (70-104); POTASSIUM 3.5 MMOL/L (3.5-5.1); SODIUM 140 MMOL/L (135-145); TOTAL CARBON DIOXIDE 30.7 MMOL/L (24-32); TOTAL PROTEIN 7.2 G/DL (6.4-8.2); eGFR 67 ML/MIN
[2021-04-18] MEDS: pantoprazole 40mg Tablet.DR PO SCH (07:50)
[2021-04-18] MEDS: gabapentin 300mg capsule PO SCH ×3 (07:50→21:19)
[2021-04-18] MEDS: acyclovir 200 MG capsule PO SCH (07:50)
[2021-04-18] MEDS: baclofen 10mg tablet PO SCH ×2 (07:50→21:19)
[2021-04-18] MEDS: docusate sod 100mg capsule PO SCH ×2 (07:50→21:19)
[2021-04-18] MEDS: furosemide 40mg tablet PO SCH ×3 (07:50→21:19)
[2021-04-18] MEDS: metoprolol tartrate 25mg tablet PO SCH ×2 (07:51→21:25)
[2021-04-18] MEDS: lisinopril 5mg tablet PO SCH (07:54)
[2021-04-18] MEDS: piperacillin/tazo 4.5gm/100ml 100 ML IV SCH (07:55)
[2021-04-18] MEDS: allopurinol 300 MG tablet PO SCH (07:55)
[2021-04-18] MEDS ORDERED: ergocalciferol (vit D2) capsule 50,000 UNITS (1,250mcg) CAPSULE PO SCH (08:00)
[2021-04-18] MEDS ORDERED: tetanus & diphtheria toxoid (Td) vaccine 0.5ml IMVAC ONE (08:00)
[2021-04-18] MEDS ORDERED: VANCOMYCIN LEVEL IV ONE (08:30)
[2021-04-18] MEDS: vancomycin/NS 1 GM ADD-VANTAGE 250 ML IV SCH ×2 (09:40→22:01)
[2021-04-18 11:00] VITALS: BP 120/60
--- NOTE | 2021-04-18 18:13 | NUR ---
patient up and about in room. seen by DR Harp all cares continue. report given to leeroy DAVILA
--- NOTE | 2021-04-18 19:26 | NUR ---
Patient in room [facility] 340. I have received report from Teresa DAVILA and had the opportunity to ask questions and assume patient care. Emiliano DAVILA
[2021-04-18 20:00] VITALS: BP 137/59
[2021-04-18] MEDS ORDERED: warfarin 5mg tablet PO ONE (21:00)
[2021-04-18] MEDS: insulin glargine (Lantus) pen - multi-dose SQ SCH (21:00)
[2021-04-18] MEDS: atorvastatin 20mg tablet PO SCH (21:19)
[2021-04-18] MEDS: cefepime 2g/NS 100ml ADVANTAGE 100 ML IV SCH (21:25)
[2021-04-19] VITALS: BP 98/57
[2021-04-19 06:34] LABS: BASOPHILS % (AUTO) 0.7 % (0-1); EOSINOPHILS # (AUTO) 0.4 X10'3 (0-0.9); HEMATOCRIT 41.1 % (42.0-52.0); HEMOGLOBIN 13.2 g/dl (14.0-17.9); LYMPHOCYTES # (AUTO) 0.6 X10'3 (1.1-4.8); LYMPHOCYTES % (AUTO) 14.2 % (21-51); MEAN CORPUSCULAR HGB CONC 32.2 g/dL (33.0-36.5); MEAN PLATELET VOLUME 8.9 FL (7.4-10.4); MONOCYTES # (AUTO) 0.6 X10'3 (0-0.9); NEUTROPHILS # (AUTO) 2.5 X10'3 (1.8-7.7); NEUTROPHILS % (AUTO) 62.1 % (42-75); PLATELET COUNT 153 X10'3 (140-440); RED BLOOD COUNT 4.73 X10'6 (4.70-6.10); RED CELL DISTRIBUTION WIDTH 15.4 % (11.5-14.5)
--- NOTE | 2021-04-19 06:43 | NUR ---
Problems reprioritized. Patient report given, questions answered & plan of care reviewed with Ju DAVILA.
[2021-04-19 06:55] LABS: ALANINE AMINOTRANSFERASE 22 U/L (12-78); ALBUMIN 2.9 G/DL (3.4-5.0); ALBUMIN/GLOBULIN RATIO 0.7 (1.1-1.5); ALKALINE PHOSPHATASE 67 IU/L (46-116); ANION GAP 7 (8-16); ASPARTATE AMINO TRANSFERASE 23 U/L (10-37); BILIRUBIN,TOTAL 0.7 MG/DL (0.1-1.0); BLOOD UREA NITROGEN 21 MG/DL (7-18); BUN/CREATININE RATIO 20.2 (5.4-32.0); CALCIUM 8.5 MG/DL (8.5-10.1); CHLORIDE 100 MMOL/L (99-107); CREATININE 1.04 MG/DL (0.60-1.10); GLUCOSE 107 MG/DL (70-104); MAGNESIUM 2.2 MG/DL (1.5-2.4); POTASSIUM 3.7 MMOL/L (3.5-5.1); SODIUM 138 MMOL/L (135-145); TOTAL PROTEIN 7.2 G/DL (6.4-8.2); eGFR 70 ML/MIN
[2021-04-19 07:30] VITALS: BP 131/67
[2021-04-19] MEDS: furosemide 40mg tablet PO SCH (08:48)
[2021-04-19] MEDS: baclofen 10mg tablet PO SCH (08:49)
[2021-04-19] MEDS: acyclovir 200 MG capsule PO SCH (08:49)
[2021-04-19] MEDS: lisinopril 5mg tablet PO SCH (08:49)
[2021-04-19] MEDS: metoprolol tartrate 25mg tablet PO SCH (08:49)
[2021-04-19] MEDS: allopurinol 300 MG tablet PO SCH (08:49)
[2021-04-19] MEDS: gabapentin 300mg capsule PO SCH (08:49)
[2021-04-19] MEDS: docusate sod 100mg capsule PO SCH (08:49)
[2021-04-19] MEDS: pantoprazole 40mg Tablet.DR PO SCH (08:49)
[2021-04-19] MEDS: cefepime 2g/NS 100ml ADVANTAGE 100 ML IV SCH (08:50)
[2021-04-19] MEDS: vancomycin/NS 1 GM ADD-VANTAGE 250 ML IV SCH (08:57)
[2021-04-19] MEDS: HYDROcodone/acetaminophen 10/325mg tab PO PRN (11:20)
[2021-04-19] MEDS ORDERED: CEPH-585 PO (11:25)
[2021-04-19] MEDS ORDERED: DOXY100C2 PO (11:25)
[2021-04-19 12:00] VITALS: BP 130/75
--- NOTE | 2021-04-19 13:16 | NUR ---
PATIENT STABLE AND APPROPRIATE FOR DISCHARGE HOME. IV X2 REMOVED, ALL BELONGINGS TAKEN FROM ROOM. NEW PRESCRIPTIONS E-SCRIPTED TO PREFERRED PHARMACY. WOUND CARE COMPLETED, DISCHARGE PICTURES TAKEN AND IN CHART. ALL DISCHARGE INSTRUCTIONS AND EDUCATION GIVEN AND REVIEWED WITH PATIENT, ALL QUESTIONS ANSWERED. PATIENT IS AWARE OF NEXT DUE DOSES ON ALL NEW AND HOME MEDICATIONS. DIABETES SURVIVAL SKILLS GIVEN TO PATIENT.
[2021-04-19] MEDS ORDERED: warfarin 4mg tablet PO ONE (21:00)
--- NOTE | 2021-04-21 14:09 | NUR ---
CASE MANAGEMENT DISCHARGE FOLLOW UP: T/c to pt, no answer, left message requesting callback.
== END 2021-04-19 13:38 | disposition home health service (06) | DRG 603 ==
LOC: ER 18:44 → ED HOLD 22:42 → SUR 3N 23:40
PROVIDERS: ADMIT Family Medicine; ATTEND Internal Medicine
DX: L03.115 Cellulitis of right lower limb (principal); I50.32 Chronic diastolic (congestive) heart failure; Z68.41 Body mass index [BMI] 40.0-44.9, adult; E11.42 Type 2 diabetes mellitus with diabetic polyneuropathy; L03.116 Cellulitis of left lower limb; S81.801A Unspecified open wound, right lower leg, initial encounter; E11.621 Type 2 diabetes mellitus with foot ulcer; E66.01 Morbid (severe) obesity due to excess calories; E78.5 Hyperlipidemia, unspecified; G89.4 Chronic pain syndrome; I11.0 Hypertensive heart disease with heart failure; I48.91 Unspecified atrial fibrillation; J43.9 Emphysema, unspecified; M10.9 Gout, unspecified; M54.5 Low back pain; L03.031 Cellulitis of right toe; X58.XXXA Exposure to other specified factors, initial encounter; L03.032 Cellulitis of left toe; L30.9 Dermatitis, unspecified; L97.519 Non-pressure chronic ulcer of other part of right foot with unspecified severity; Z79.01 Long term (current) use of anticoagulants; Z87.891 Personal history of nicotine dependence; Z95.0 Presence of cardiac pacemaker; Z28.21 Immunization not carried out because of patient refusal; Z88.8 Allergy status to other drugs, medicaments and biological substances; Z88.2 Allergy status to sulfonamides; Z80.1 Family history of malignant neoplasm of trachea, bronchus and lung; Z80.8 Family history of malignant neoplasm of other organs or systems; Z79.899 Other long term (current) drug therapy; Y93.89 Activity, other specified; Y92.89 Other specified places as the place of occurrence of the external cause; Y99.8 Other external cause status
CPT/HCPCS: 36415; 73660; 73700; 76937; 80053; 80202; 81003; 82948; 83036; 83605; 83735; 83880; 84145; 84443; 85025; 85610; 85730; 87040; 87070; 87081; 90715; 93005; 93971; 96375; 99285; G0378; J0692; J1815; J1940; J2543; J3370

== ENCOUNTER 2021-08-04 09:00 | Emergency (ER) | payer MEDICARE ==
[~2021-08-04] VITALS: Ht 185.4 cm; Wt 150.0 kg
[~2021-08-04 09:00] MED LIST changes: +CEPH-585 PO
[2021-08-04 09:58] VITALS: BP 165/81
[2021-08-04 10:36] LABS: BASOPHILS % (AUTO) 0.4 % (0-1); EOSINOPHILS # (AUTO) 0.2 X10'3 (0-0.9); HEMATOCRIT 42.7 % (42.0-52.0); HEMOGLOBIN 13.9 g/dl (14.0-17.9); LYMPHOCYTES # (AUTO) 0.4 X10'3 (1.1-4.8); LYMPHOCYTES % (AUTO) 7.5 % (21-51); MEAN CORPUSCULAR HEMOGLOBIN 27.5 PG (27.0-31.0); MEAN CORPUSCULAR HGB CONC 32.4 g/dL (33.0-36.5); MEAN CORPUSCULAR VOLUME 84.7 FL (78-98); MEAN PLATELET VOLUME 8.9 FL (7.4-10.4); MONOCYTES # (AUTO) 0.3 X10'3 (0-0.9); NEUTROPHILS % (AUTO) 81.1 % (42-75); PLATELET COUNT 126 X10'3 (140-440); RED BLOOD COUNT 5.05 X10'6 (4.70-6.10); WHITE BLOOD COUNT 4.9 X10'3 (4.5-11.0)
[2021-08-04 10:52] LABS: ALANINE AMINOTRANSFERASE 21 U/L (12-78); ALBUMIN 3.6 G/DL (3.4-5.0); ALBUMIN/GLOBULIN RATIO 0.8 (1.1-1.5); ALKALINE PHOSPHATASE 79 IU/L (46-116); ANION GAP 9 (8-16); ASPARTATE AMINO TRANSFERASE 24 U/L (10-37); BILIRUBIN,TOTAL 0.9 MG/DL (0.1-1.0); BLOOD UREA NITROGEN 15 MG/DL (7-18); BUN/CREATININE RATIO 16.7 (5.4-32.0); CHLORIDE 101 MMOL/L (99-107); GLUCOSE 137 MG/DL (70-104); POTASSIUM 4.5 MMOL/L (3.5-5.1); SODIUM 139 MMOL/L (135-145); TOTAL CARBON DIOXIDE 28.9 MMOL/L (24-32); eGFR 82 ML/MIN
[2021-08-04 11:20] LABS: PARTIAL THROMBOPLASTIN TIME 33 SECONDS (22-32)
[2021-08-04] MEDS ORDERED: fentaNYL/PF 50MCG/1 ML 2ML syringe IV ONE (14:25)
[2021-08-04] MEDS ORDERED: TRAM50TA2 PO (15:09)
[2021-08-04] MEDS ORDERED: DOXY100C76 PO (15:09)
[2021-08-04] MEDS ORDERED: CEPH250T PO (15:09)
== END 2021-08-04 17:10 | disposition home or self-care (01) ==
LOC: ER 09:01
DX: L03.116 Cellulitis of left lower limb (principal); I87.8 Other specified disorders of veins; E11.42 Type 2 diabetes mellitus with diabetic polyneuropathy; I10 Essential (primary) hypertension; J43.9 Emphysema, unspecified; G89.29 Other chronic pain; Z95.0 Presence of cardiac pacemaker; Z98.890 Other specified postprocedural states; Z72.89 Other problems related to lifestyle; Z88.5 Allergy status to narcotic agent; Z88.1 Allergy status to other antibiotic agents; Z88.8 Allergy status to other drugs, medicaments and biological substances; Z79.2 Long term (current) use of antibiotics; Z79.899 Other long term (current) drug therapy
CPT/HCPCS: 36415; 80053; 85025; 85610; 85730; 93926; 93971; 99285

== ENCOUNTER 2021-09-15 03:28 | Inpatient (IN) | payer MEDICARE ==
[~2021-09-15] VITALS: Ht 185.4 cm; Wt 159.0 kg
[2021-09-15] MEDS ORDERED: albuterol 2.5 MG/3 ML nebule NEB ONE ×2 (03:30→05:30)
[2021-09-15] MEDS ORDERED: ipratropium/albuterol 3ml nebule NEB ONE ×2 (03:30→05:30)
[2021-09-15 04:01] LABS: BASOPHILS % (AUTO) 0.3 % (0-1); EOSINOPHILS % (AUTO) 1.1 % (0-6); HEMATOCRIT 36.6 % (42.0-52.0); HEMOGLOBIN 12.3 g/dl (14.0-17.9); LYMPHOCYTES # (AUTO) 0.6 X10'3 (1.1-4.8); LYMPHOCYTES % (AUTO) 12.9 % (21-51); MEAN CORPUSCULAR HEMOGLOBIN 27.4 PG (27.0-31.0); MEAN CORPUSCULAR HGB CONC 33.7 g/dL (33.0-36.5); MEAN CORPUSCULAR VOLUME 81.4 FL (78-98); MEAN PLATELET VOLUME 8.6 FL (7.4-10.4); MONOCYTES # (AUTO) 0.8 X10'3 (0-0.9); MONOCYTES % (AUTO) 17.1 % (2-12); NEUTROPHILS # (AUTO) 3.1 X10'3 (1.8-7.7); NEUTROPHILS % (AUTO) 68.6 % (42-75); PLATELET COUNT 159 X10'3 (140-440); RED CELL DISTRIBUTION WIDTH 15.5 % (11.5-14.5); WHITE BLOOD COUNT 4.6 X10'3 (4.5-11.0)
[2021-09-15 04:02] LABS: ALANINE AMINOTRANSFERASE 97 U/L (12-78); ALBUMIN 2.9 G/DL (3.4-5.0); ALBUMIN/GLOBULIN RATIO 0.6 (1.1-1.5); ALKALINE PHOSPHATASE 150 IU/L (46-116); ANION GAP 9 (8-16); ASPARTATE AMINO TRANSFERASE 79 U/L (10-37); BILIRUBIN,TOTAL 0.9 MG/DL (0.1-1.0); BLOOD UREA NITROGEN 23 MG/DL (7-18); BUN/CREATININE RATIO 20.4 (5.4-32.0); CALCIUM 8.5 MG/DL (8.5-10.1); CHLORIDE 99 MMOL/L (99-107); CREATININE 1.13 MG/DL (0.60-1.10); GLUCOSE 166 MG/DL (70-104); POTASSIUM 3.8 MMOL/L (3.5-5.1); SODIUM 135 MMOL/L (135-145); TOTAL CARBON DIOXIDE 27.4 MMOL/L (24-32); TOTAL PROTEIN 7.5 G/DL (6.4-8.2); eGFR 63 ML/MIN
[2021-09-15] MEDS ORDERED: furosemide 10 MG/1 ML 10ml inj IV ONE (04:20)
[2021-09-15] MEDS ORDERED: FURO-150 PO (04:36)
[2021-09-15] MEDS ORDERED: WARF-55 PO (04:36)
[2021-09-15 04:39] LABS: TOTAL CELLS COUNTED 100
[2021-09-15 04:40] LABS: PLATELET ESTIMATE NORMAL
[2021-09-15] MEDS ORDERED: methylPREDNISolone sod succ 125mg/2ml vial IV ONE (05:30)
[2021-09-15] MEDS ORDERED: potassium Cl 40MEQ/1/2NS 520ml 520 ML IV PRN ×2 (05:55)
[2021-09-15] MEDS ORDERED: PERFLUTREN PROTEIN-A MICROSPHR (Optison) 0.22 MG/ML 3ML VIAL IV PRN (05:55)
[2021-09-15] MEDS ORDERED: magnesium 2GM in 50ml NS 50 ML IV PRN (05:55)
[2021-09-15] MEDS ORDERED: ondansetron/PF 4mg/2ml inj IV PRN (05:55)
[2021-09-15] MEDS ORDERED: magnesium 4gm in 100ml NS 100 ML IV PRN (05:55)
[2021-09-15] MEDS ORDERED: magnesium Cl slow-release 64mg tablet PO PRN (05:55)
[2021-09-15] MEDS ORDERED: albuterol 2.5 MG/3 ML nebule NEB PRN ×2 (05:55)
[2021-09-15] MEDS ORDERED: potassium Cl 20 mEq SR tablet PO PRN ×2 (05:55)
[2021-09-15] MEDS ORDERED: dextrose 50%-water 50ml dispensing syringe IV PRN ×2 (07:00)
[2021-09-15] MEDS ORDERED: MESSAGE TO PHARMACY PO ONE (07:00)
[2021-09-15] MEDS ORDERED: dextrose ORAL solution 15 GM/59 ML bottle PO PRN ×2 (07:00)
[2021-09-15] MEDS ORDERED: glucagon, human recombinant 1mg kit SUBCUT PRN (07:00)
[2021-09-15 07:35] LABS: HEMOGLOBIN A1C 7.1 % (4.5-6.2)
[2021-09-15] MEDS ORDERED: enoxaparin 40mg/0.4ml syringe SUBCUT SCH (08:00)
[2021-09-15] MEDS: docusate sod 100mg capsule PO SCH ×2 (08:00→20:48)
[2021-09-15] MEDS ORDERED: furosemide 40mg/4ml inj IV SCH (08:00)
[2021-09-15] MEDS: K and/or MAG REPLACEMENT MC SCH ×2 (08:00→20:00)
[2021-09-15] MEDS: acetaminophen 325mg tablet PO PRN (08:37)
[2021-09-15 10:28] LABS: D-DIMER 0.44 MG/L FEU (0-0.50)
[2021-09-15 10:29] LABS: CREATINE KINASE 150 U/L (39-308); LIPASE 50 U/L (73-393)
[2021-09-15] MEDS ORDERED: morphine 4 MG/ML inj SYRINge IV PRN (10:50)
--- NOTE | 2021-09-15 10:51 | NUR ---
notified dr yaers for pt inr level 5.5 and informed that due to code missed the morning accu check will do in afternoon as per md just follow the protocol.new orders to hold the coudamin and lovenox and repeat ptt,pt inr tomm morning.as per md pt is in pain give 4 mg morphine iv q6 hr as needed for pain. Addendum: 09/15/21 at 1216 by ROXANE morphine 4 mg iv q 4hr for pain.
--- NOTE | 2021-09-15 10:51 | NUR ---
as per dr ayers pt is allergic to oral morphine not to iv morphine and safe to order .
[2021-09-15] MEDS: methylPREDNISolone sod succ/PF 40mg inj. IV SCH ×3 (11:00→21:02)
[2021-09-15] MEDS: furosemide 10 MG/1 ML 10ml inj IV SCH ×2 (11:01→21:03)
--- NOTE | 2021-09-15 11:57 | NUR ---
pt screaming and saying why have u given me lasix in first place and i am peeing more and i am in lot of pain ,i can't get pain med rgt now as i will be peeping my pants .pt is refusing the med and continously c/o pain and want to go upstairs informed that we do not have bed available .notified charge nurse will .as per charge non admin the morphine if pt is refusing.
[2021-09-15 14:00] VITALS: BP 115/67
[2021-09-15] MEDS: gabapentin 300mg capsule PO SCH ×2 (14:00→20:47)
[2021-09-15] MEDS: insulin Lispro (HumaLOG) vial - multi-dose SQ SCH (14:53)
[2021-09-15 15:00] VITALS: BP 145/62
[2021-09-15] MEDS: morphine 4 MG/ML inj SYRINge IV PRN ×2 (15:46→20:47)
--- NOTE | 2021-09-15 18:41 | NUR ---
Problems reprioritized. Patient report given, questions answered & plan of care reviewed with Josefina DAVILA.
[2021-09-15] MEDS: baclofen 10mg tablet PO SCH (20:49)
[2021-09-15] MEDS: atorvastatin 20mg tablet PO SCH (20:49)
[2021-09-15] MEDS: metoprolol tartrate 50mg tablet PO SCH (20:49)
[2021-09-15] MEDS: doxycycline inj 100 MG in normal saline 100ml IV soln 100 ML IV SCH (21:09)
[2021-09-15] MEDS: insulin glargine (Lantus) pen - multi-dose SQ SCH (22:03)
[2021-09-16] MEDS: methylPREDNISolone sod succ/PF 40mg inj. IV SCH ×4 (02:01→21:08)
[2021-09-16 04:50] VITALS: BP 119/81
[2021-09-16 06:00] VITALS: BP 128/78
[2021-09-16 06:57] LABS: BASOPHILS % (AUTO) 0 % (0-1); EOSINOPHILS % (AUTO) 0 % (0-6); HEMATOCRIT 39.6 % (42.0-52.0); HEMOGLOBIN 12.9 g/dl (14.0-17.9); LYMPHOCYTES # (AUTO) 0.4 X10'3 (1.1-4.8); LYMPHOCYTES % (AUTO) 5.6 % (21-51); MEAN CORPUSCULAR HGB CONC 32.7 g/dL (33.0-36.5); MEAN CORPUSCULAR VOLUME 82.8 FL (78-98); MEAN PLATELET VOLUME 8.7 FL (7.4-10.4); MONOCYTES # (AUTO) 0.3 X10'3 (0-0.9); MONOCYTES % (AUTO) 3.4 % (2-12); NEUTROPHILS # (AUTO) 6.9 X10'3 (1.8-7.7); PLATELET COUNT 188 X10'3 (140-440); RED BLOOD COUNT 4.78 X10'6 (4.70-6.10); RED CELL DISTRIBUTION WIDTH 15.4 % (11.5-14.5); WHITE BLOOD COUNT 7.6 X10'3 (4.5-11.0)
[2021-09-16 07:14] LABS: PARTIAL THROMBOPLASTIN TIME 68 SECONDS (22-32)
[2021-09-16 07:15] LABS: ALBUMIN 2.9 G/DL (3.4-5.0); ANION GAP 9 (8-16); BLOOD UREA NITROGEN 33 MG/DL (7-18); BUN/CREATININE RATIO 28.7 (5.4-32.0); CALCIUM 8.8 MG/DL (8.5-10.1); CHLORIDE 97 MMOL/L (99-107); CHOL/HDL RATIO 3.4 (0.00-4.99); CHOLESTEROL 108 MG/DL (0-200); CREATININE 1.15 MG/DL (0.60-1.10); GLUCOSE 211 MG/DL (70-104); HDL CHOLESTEROL 32 MG/DL (35-60); LDL CHOLESTEROL 59 MG/DL (50-100); MAGNESIUM 2.4 MG/DL (1.5-2.4); POTASSIUM 4.1 MMOL/L (3.5-5.1); SODIUM 134 MMOL/L (135-145); TRIGLYCERIDES 82 MG/DL (20-135); eGFR 62 ML/MIN
[2021-09-16] MEDS: allopurinol 300 MG tablet PO SCH (08:00)
[2021-09-16] MEDS ORDERED: warfarin 5mg tablet PO SCH (08:00)
[2021-09-16] MEDS: doxycycline inj 100 MG in normal saline 100ml IV soln 100 ML IV SCH (08:19)
[2021-09-16] MEDS: furosemide 10 MG/1 ML 10ml inj IV SCH ×2 (08:20→21:09)
[2021-09-16] MEDS: morphine 4 MG/ML inj SYRINge IV PRN ×3 (08:21→21:08)
[2021-09-16] MEDS: baclofen 10mg tablet PO SCH ×2 (08:21→21:21)
[2021-09-16] MEDS: metoprolol tartrate 50mg tablet PO SCH ×2 (08:21→20:00)
[2021-09-16] MEDS: gabapentin 300mg capsule PO SCH ×3 (08:21→21:06)
[2021-09-16] MEDS: docusate sod 100mg capsule PO SCH ×2 (08:22→21:10)
[2021-09-16] MEDS: lisinopril 20mg tablet PO SCH (08:22)
[2021-09-16] MEDS: insulin Lispro (HumaLOG) vial - multi-dose SQ SCH ×2 (08:26→12:52)
[2021-09-16] MEDS: nitroGLYCERIN 0.4mg/hour patch TD SCH (08:29)
[2021-09-16] MEDS: K and/or MAG REPLACEMENT MC SCH ×2 (08:34→20:00)
[2021-09-16] MEDS ORDERED: FLU VACC QS2021-22(6MOS UP)/PF 60 MCG/0.5 ML SYRINGE IM ONE (09:00)
[2021-09-16 11:00] VITALS: BP 101/50
--- NOTE | 2021-09-16 11:11 | NUR ---
Noted pt with T2DM, well controlled with A1c 7.1%. Written DM education with RD contact information placed in patient's chart. Will remain available. Addendum: 09/16/21 at [address] Amended: Links added.
[2021-09-16 15:00] VITALS: BP 109/53
--- NOTE | 2021-09-16 18:08 | NUR ---
Problems reprioritized. Patient report given, questions answered & plan of care reviewed with Sophia DAVILA.
--- NOTE | 2021-09-16 18:10 | NUR ---
Patient in room PCU 3017. I have received report from LOLA Cano and had the opportunity to ask questions and assume patient care.
[2021-09-16 19:00] VITALS: BP 99/54
[2021-09-16] MEDS: insulin glargine (Lantus) pen - multi-dose SQ SCH (21:00)
[2021-09-16] MEDS: atorvastatin 20mg tablet PO SCH (21:06)
[2021-09-16] MEDS: lactobacillus rhamnosus 10,000 MMU CELLS/CAPSULE PO SCH (21:10)
[2021-09-16 23:00] VITALS: BP 117/62
[2021-09-17] MEDS: doxycycline inj 100 MG in normal saline 100ml IV soln 100 ML IV SCH ×3 (01:47→19:45)
[2021-09-17] MEDS: methylPREDNISolone sod succ/PF 40mg inj. IV SCH ×4 (02:00→19:48)
[2021-09-17 03:00] VITALS: BP 113/40
[2021-09-17 06:00] VITALS: BP 146/70
--- NOTE | 2021-09-17 06:10 | NUR ---
Problems reprioritized. Patient report given, questions answered & plan of care reviewed with LOLA Cano.
[2021-09-17] MEDS: nitroGLYCERIN 0.4mg/hour patch TD SCH (07:57)
[2021-09-17] MEDS: lactobacillus rhamnosus 10,000 MMU CELLS/CAPSULE PO SCH ×2 (07:58→19:48)
[2021-09-17] MEDS: gabapentin 300mg capsule PO SCH ×3 (07:58→19:48)
[2021-09-17] MEDS: metoprolol tartrate 50mg tablet PO SCH ×2 (07:58→19:47)
[2021-09-17] MEDS: allopurinol 300 MG tablet PO SCH (07:59)
[2021-09-17] MEDS: furosemide 10 MG/1 ML 10ml inj IV SCH ×2 (07:59→19:47)
[2021-09-17] MEDS: docusate sod 100mg capsule PO SCH ×2 (07:59→19:48)
[2021-09-17] MEDS: baclofen 10mg tablet PO SCH ×2 (07:59→19:48)
[2021-09-17] MEDS: lisinopril 20mg tablet PO SCH (07:59)
[2021-09-17] MEDS: acetaminophen 325mg tablet PO PRN (07:59)
[2021-09-17] MEDS: K and/or MAG REPLACEMENT MC SCH ×2 (08:00→20:00)
[2021-09-17] MEDS: insulin Lispro (HumaLOG) vial - multi-dose SQ SCH ×3 (08:12→19:25)
[2021-09-17 08:49] LABS: BASOPHILS % (AUTO) 0.1 % (0-1); EOSINOPHILS % (AUTO) 0 % (0-6); HEMATOCRIT 39.1 % (42.0-52.0); HEMOGLOBIN 12.8 g/dl (14.0-17.9); LYMPHOCYTES # (AUTO) 0.3 X10'3 (1.1-4.8); LYMPHOCYTES % (AUTO) 2.8 % (21-51); MEAN CORPUSCULAR HEMOGLOBIN 26.6 PG (27.0-31.0); MEAN CORPUSCULAR HGB CONC 32.6 g/dL (33.0-36.5); MEAN CORPUSCULAR VOLUME 81.4 FL (78-98); MEAN PLATELET VOLUME 8.9 FL (7.4-10.4); MONOCYTES # (AUTO) 0.3 X10'3 (0-0.9); MONOCYTES % (AUTO) 2.8 % (2-12); NEUTROPHILS # (AUTO) 11.6 X10'3 (1.8-7.7); NEUTROPHILS % (AUTO) 94.3 % (42-75); PLATELET COUNT 239 X10'3 (140-440); RED BLOOD COUNT 4.81 X10'6 (4.70-6.10); RED CELL DISTRIBUTION WIDTH 15.4 % (11.5-14.5); WHITE BLOOD COUNT 12.3 X10'3 (4.5-11.0)
[2021-09-17 09:33] LABS: ALBUMIN 2.9 G/DL (3.4-5.0); ANION GAP 9 (8-16); BLOOD UREA NITROGEN 36 MG/DL (7-18); CALCIUM 8.9 MG/DL (8.5-10.1); CHLORIDE 101 MMOL/L (99-107); GLUCOSE 255 MG/DL (70-104); MAGNESIUM 2.2 MG/DL (1.5-2.4); SODIUM 138 MMOL/L (135-145); TOTAL CARBON DIOXIDE 28.3 MMOL/L (24-32); eGFR 73 ML/MIN
[2021-09-17 11:00] VITALS: BP 106/60
[2021-09-17 18:00] VITALS: BP 107/49
--- NOTE | 2021-09-17 18:22 | NUR ---
Problems reprioritized. Patient report given, questions answered & plan of care reviewed with Sophia DAVILA.
--- NOTE | 2021-09-17 18:25 | NUR ---
Patient in room PCU 3017. I have received report from LOLA Cano and had the opportunity to ask questions and assume patient care.
[2021-09-17] MEDS: morphine 4 MG/ML inj SYRINge IV PRN (19:46)
[2021-09-17] MEDS: atorvastatin 20mg tablet PO SCH (19:48)
[2021-09-17 22:00] VITALS: BP 135/65
[2021-09-17] MEDS: insulin glargine (Lantus) pen - multi-dose SQ SCH (22:15)
[2021-09-18] MEDS: morphine 4 MG/ML inj SYRINge IV PRN ×3 (01:46→14:16)
[2021-09-18] MEDS: methylPREDNISolone sod succ/PF 40mg inj. IV SCH ×3 (01:46→14:15)
[2021-09-18 02:00] VITALS: BP 142/75
[2021-09-18 06:00] VITALS: BP 124/76
--- NOTE | 2021-09-18 06:11 | NUR ---
Problems reprioritized. Patient report given, questions answered & plan of care reviewed with LOLA Stallings.
[2021-09-18 06:32] LABS: BASOPHILS % (AUTO) 0 % (0-1); EOSINOPHILS % (AUTO) 0 % (0-6); HEMATOCRIT 40.4 % (42.0-52.0); HEMOGLOBIN 13.2 g/dl (14.0-17.9); LYMPHOCYTES # (AUTO) 0.3 X10'3 (1.1-4.8); LYMPHOCYTES % (AUTO) 2.5 % (21-51); MEAN CORPUSCULAR HEMOGLOBIN 26.8 PG (27.0-31.0); MEAN CORPUSCULAR HGB CONC 32.6 g/dL (33.0-36.5); MEAN CORPUSCULAR VOLUME 82.3 FL (78-98); MEAN PLATELET VOLUME 8.6 FL (7.4-10.4); MONOCYTES # (AUTO) 0.4 X10'3 (0-0.9); MONOCYTES % (AUTO) 3.3 % (2-12); NEUTROPHILS # (AUTO) 10.6 X10'3 (1.8-7.7); NEUTROPHILS % (AUTO) 94.2 % (42-75); PLATELET COUNT 243 X10'3 (140-440); RED BLOOD COUNT 4.92 X10'6 (4.70-6.10); RED CELL DISTRIBUTION WIDTH 15.7 % (11.5-14.5); WHITE BLOOD COUNT 11.2 X10'3 (4.5-11.0)
[2021-09-18 07:02] LABS: ALBUMIN 2.9 G/DL (3.4-5.0); ANION GAP 11 (8-16); BLOOD UREA NITROGEN 36 MG/DL (7-18); CHLORIDE 101 MMOL/L (99-107); CREATININE 1.03 MG/DL (0.60-1.10); GLUCOSE 155 MG/DL (70-104); MAGNESIUM 2.2 MG/DL (1.5-2.4); SODIUM 140 MMOL/L (135-145); TOTAL CARBON DIOXIDE 28.4 MMOL/L (24-32); eGFR 71 ML/MIN
[2021-09-18 07:10] LABS: CALCIUM 8.8 MG/DL (8.5-10.1); POTASSIUM 4.5 MMOL/L (3.5-5.1)
[2021-09-18] MEDS: docusate sod 100mg capsule PO SCH (08:00)
[2021-09-18] MEDS: K and/or MAG REPLACEMENT MC SCH (08:00)
[2021-09-18] MEDS: lactobacillus rhamnosus 10,000 MMU CELLS/CAPSULE PO SCH (08:41)
[2021-09-18] MEDS: baclofen 10mg tablet PO SCH (08:41)
[2021-09-18] MEDS: allopurinol 300 MG tablet PO SCH (08:42)
[2021-09-18] MEDS: lisinopril 20mg tablet PO SCH (08:42)
[2021-09-18] MEDS: metoprolol tartrate 50mg tablet PO SCH (08:42)
[2021-09-18] MEDS: gabapentin 300mg capsule PO SCH ×2 (08:42→14:16)
[2021-09-18] MEDS: doxycycline inj 100 MG in normal saline 100ml IV soln 100 ML IV SCH (08:43)
[2021-09-18] MEDS: nitroGLYCERIN 0.4mg/hour patch TD SCH (08:45)
[2021-09-18] MEDS: furosemide 10 MG/1 ML 10ml inj IV SCH (08:45)
[2021-09-18] MEDS: insulin Lispro (HumaLOG) vial - multi-dose SQ SCH (09:38)
[2021-09-18 11:00] VITALS: BP 123/81
[2021-09-18] MEDS ORDERED: ALBU2.5V7 NEB (14:15)
[2021-09-18] MEDS ORDERED: DOXY100C2 PO (14:17)
--- NOTE | 2021-09-18 14:31 | NUR ---
PAGER ID: [phone] MESSAGE: [phone] Pavon pt has told me several times since this AM that he spoke to you today and explained his caregivers are out of town until tuesday and that you guys agreed to discharge tuesday. Donta [phone]
--- NOTE | 2021-09-18 15:14 | NUR ---
Discussed pt discharge with CM, Dr Syed and Dr Mckee as well as pt. pt has family at home that he verified can take care of him when he arrives so he is not without a caregiver. he ambulated 150 feet with walker today with standby assist also. At this time he feels agreeable to discharge and safe. Cab willl be arranged by Anam
[2021-09-18 16:00] VITALS: BP 130/83
--- NOTE | 2021-09-18 16:59 | NUR ---
Disch pt to cab at 1655 via w/c. all belongings and meds accounted for. reviewed all disch instructions with pt and new medications. pt was allowed time to ask questions and says he feels clear on instructions. IV removed and cath tip intact. vss a/0x3
[2021-09-18] MEDS ORDERED: warfarin 1mg tablet PO ONE (21:00)
== END 2021-09-18 17:05 | disposition home health service (06) | DRG 193 ==
LOC: ER 03:28 → UNDOADMIN 05:53 → ED HOLD 05:53 → PCU 3S 05:58 → ED HOLD 13:31
PROVIDERS: ADMIT Internal Medicine; ATTEND Family Medicine
DX: J18.9 Pneumonia, unspecified organism (principal); J96.01 Acute respiratory failure with hypoxia; I50.43 Acute on chronic combined systolic (congestive) and diastolic (congestive) heart failure; Z68.42 Body mass index [BMI] 45.0-49.9, adult; I11.0 Hypertensive heart disease with heart failure; E11.42 Type 2 diabetes mellitus with diabetic polyneuropathy; E78.5 Hyperlipidemia, unspecified; J43.9 Emphysema, unspecified; M10.9 Gout, unspecified; Z20.822 Contact with and (suspected) exposure to COVID-19; Z66 Do not resuscitate; G89.29 Other chronic pain; E66.01 Morbid (severe) obesity due to excess calories; M54.9 Dorsalgia, unspecified; Z79.84 Long term (current) use of oral hypoglycemic drugs; Z80.1 Family history of malignant neoplasm of trachea, bronchus and lung; Z86.73 Personal history of transient ischemic attack (TIA), and cerebral infarction without residual deficits; Z88.9 Allergy status to unspecified drugs, medicaments and biological substances; Z95.0 Presence of cardiac pacemaker; Z23 Encounter for immunization; Z88.8 Allergy status to other drugs, medicaments and biological substances; Z80.8 Family history of malignant neoplasm of other organs or systems
CPT/HCPCS: 36415; 71045; 76937; 80048; 80053; 80061; 82550; 82948; 83036; 83690; 83735; 83880; 84484; 85007; 85025; 85379; 85610; 85730; 87081; 87635; 93005; 93306; 94640; 94760; 96374; 96375; 97110; 97161; 97530; 99285; C9803; G0378; J1815; J1940; J2270; J2920; J2930; J3490

== ENCOUNTER 2021-11-27 15:19 | Emergency (ER) | payer MEDICARE ==
[~2021-11-27] VITALS: Ht 185.4 cm; Wt 159.0 kg
[~2021-11-27 15:19] MED LIST changes: +ALBU2.5V7 NEB; -CEPH-585 PO; -CHOL500049 PO; +FURO-150 PO; -FURO40TA4 PO; -LISI-790 PO; +LISI5TAB22 PO
[2021-11-27 16:58] LABS: BASOPHILS % (AUTO) 0.4 % (0-1); EOSINOPHILS # (AUTO) 0.1 X10'3 (0-0.9); HEMATOCRIT 40.4 % (42.0-52.0); HEMOGLOBIN 13.3 g/dl (14.0-17.9); LYMPHOCYTES # (AUTO) 0.5 X10'3 (1.1-4.8); LYMPHOCYTES % (AUTO) 7.8 % (21-51); MEAN CORPUSCULAR HEMOGLOBIN 27.6 PG (27.0-31.0); MEAN CORPUSCULAR VOLUME 83.5 FL (78-98); MEAN PLATELET VOLUME 8.5 FL (7.4-10.4); MONOCYTES # (AUTO) 0.6 X10'3 (0-0.9); MONOCYTES % (AUTO) 9.2 % (2-12); NEUTROPHILS # (AUTO) 5.2 X10'3 (1.8-7.7); NEUTROPHILS % (AUTO) 80.6 % (42-75); PLATELET COUNT 213 X10'3 (140-440); RED BLOOD COUNT 4.84 X10'6 (4.70-6.10); RED CELL DISTRIBUTION WIDTH 17.2 % (11.5-14.5); WHITE BLOOD COUNT 6.5 X10'3 (4.5-11.0)
--- NOTE | 2021-11-27 17:49 | NUR ---
pt amb with walker around ambulance bay, pulse ox remained 96-98% on room air, no SOB with increased activity
--- NOTE | 2021-11-27 19:09 | NUR ---
pt amb with walker to room 17 from ambulance bay, report to Alexander DAVILA
[2021-11-27] MEDS ORDERED: furosemide 40mg/4ml inj IV ONE (19:10)
[2021-11-27 20:03] LABS: ALANINE AMINOTRANSFERASE 18 U/L (12-78); ALBUMIN 3.4 G/DL (3.4-5.0); ALBUMIN/GLOBULIN RATIO 0.7 (1.1-1.5); ALKALINE PHOSPHATASE 65 IU/L (46-116); ANION GAP 9 (8-16); ASPARTATE AMINO TRANSFERASE 24 U/L (10-37); BILIRUBIN,TOTAL 0.6 MG/DL (0.1-1.0); BLOOD UREA NITROGEN 21 MG/DL (7-18); BUN/CREATININE RATIO 21.6 (5.4-32.0); CALCIUM 9.1 MG/DL (8.5-10.1); CHLORIDE 98 MMOL/L (99-107); CREATININE 0.97 MG/DL (0.60-1.10); GLUCOSE 86 MG/DL (70-104); POTASSIUM 4.1 MMOL/L (3.5-5.1); SODIUM 138 MMOL/L (135-145); TOTAL CARBON DIOXIDE 31.4 MMOL/L (24-32); TOTAL PROTEIN 8.4 G/DL (6.4-8.2); eGFR 76 ML/MIN
[2021-11-27 21:43] VITALS: BP 133/66
== END 2021-11-27 21:29 | disposition home or self-care (01) ==
LOC: ER 15:19
DX: B34.9 Viral infection, unspecified (principal); Z20.822 Contact with and (suspected) exposure to COVID-19; I11.0 Hypertensive heart disease with heart failure; I50.9 Heart failure, unspecified; R06.02 Shortness of breath; R05.9 Cough, unspecified; E11.42 Type 2 diabetes mellitus with diabetic polyneuropathy; J43.9 Emphysema, unspecified; G89.29 Other chronic pain; Z95.0 Presence of cardiac pacemaker; Z87.01 Personal history of pneumonia (recurrent); Z72.89 Other problems related to lifestyle; Z88.5 Allergy status to narcotic agent; Z88.1 Allergy status to other antibiotic agents; Z88.8 Allergy status to other drugs, medicaments and biological substances; Z79.2 Long term (current) use of antibiotics; Z79.899 Other long term (current) drug therapy
CPT/HCPCS: 36415; 71045; 80053; 84145; 85025; 87635; 93005; 96374; 99285; C9803; J1940

== ENCOUNTER 2024-01-22 08:31 | Emergency (ER) | payer MEDICARE ==
[~2024-01-22] VITALS: Ht 185.4 cm; Wt 143.2 kg
[~2024-01-22 08:31] MED LIST changes: +SIMV-343 PO; -SIMV40TA PO
[2024-01-22 08:34] VITALS: BP 152/74; PULSE 65; RESP 20; TEMP 97.4; O2SAT 97
[2024-01-22] MEDS ORDERED: MUPI22OI30 TOP (11:03)
[2024-01-22] MEDS ORDERED: PRED20TA PO (11:03)
[2024-01-22] MEDS: dexamethasone sod phosphate 10mg/ml inj PO STA (11:05)
== END 2024-01-22 11:20 | disposition home or self-care (01) ==
LOC: ER 08:31
DX: L01.00 Impetigo, unspecified (principal); I11.0 Hypertensive heart disease with heart failure; J44.9 Chronic obstructive pulmonary disease, unspecified; E11.9 Type 2 diabetes mellitus without complications; G89.29 Other chronic pain; M54.9 Dorsalgia, unspecified; Z88.5 Allergy status to narcotic agent; Z79.899 Other long term (current) drug therapy; Z88.1 Allergy status to other antibiotic agents
CPT/HCPCS: 99284; J1100

== ENCOUNTER 2024-08-06 20:30 | Inpatient (IN) | payer MEDICARE ==
[~2024-08-06] VITALS: Ht 182.9 cm; Wt 140.9 kg
[2024-08-06 21:02] LABS: BASOPHILS % (AUTO) 0.9 % (0-1); EOSINOPHILS # (AUTO) 0.1 X10'3 (0-0.9); EOSINOPHILS % (AUTO) 4.9 % (0-6); HEMATOCRIT 40.1 % (42.0-52.0); HEMOGLOBIN 12.6 g/dl (14.0-17.9); LYMPHOCYTES # (AUTO) 0.6 X10'3 (1.1-4.8); LYMPHOCYTES % (AUTO) 21.4 % (21-51); MEAN CORPUSCULAR HEMOGLOBIN 26.2 PG (27.0-31.0); MEAN CORPUSCULAR HGB CONC 31.4 g/dL (33.0-36.5); MEAN CORPUSCULAR VOLUME 83.5 FL (78-98); MEAN PLATELET VOLUME 8.3 FL (7.4-10.4); MONOCYTES # (AUTO) 0.4 X10'3 (0-0.9); MONOCYTES % (AUTO) 14.5 % (2-12); NEUTROPHILS # (AUTO) 1.6 X10'3 (1.8-7.7); NEUTROPHILS % (AUTO) 58.3 % (42-75); PLATELET COUNT 215 X10'3 (140-440); RED CELL DISTRIBUTION WIDTH 16.4 % (11.5-14.5); WHITE BLOOD COUNT 2.8 X10'3 (4.5-11.0)
[2024-08-06 21:09] LABS: ALBUMIN 2.5 G/DL (3.4-5.0); ANION GAP 7 (8-16); BLOOD UREA NITROGEN 12 MG/DL (7-18); BUN/CREATININE RATIO 13.8 (10.0-20.0); CALCIUM 8.6 MG/DL (8.5-10.1); CHLORIDE 100 MMOL/L (99-107); CREATININE 0.87 MG/DL (0.60-1.10); GLUCOSE 283 MG/DL (70-104); POTASSIUM 3.3 MMOL/L (3.5-5.1); SODIUM 138 MMOL/L (135-145); eCRCL 78 ML/MIN; eGFR 85 ML/MIN
[2024-08-06 21:12] LABS: PROTHROMBIN TIME 37.7 SECONDS (9.0-12.0)
[2024-08-06 21:44] LABS: ANISOCYTOSIS 1+; PLATELET ESTIMATE NORMAL; TOTAL CELLS COUNTED 100
[2024-08-06] MEDS: ondansetron/PF 4mg/2ml inj IV ONE (21:58)
[2024-08-06] MEDS: fentaNYL/PF 50MCG/1 ML 2ML syringe IV ONE (21:58)
[2024-08-06] MEDS ORDERED: HYDROmorphone/PF 0.2 MG/ML SYRINGE IV PRN (22:40)
[2024-08-06] MEDS ORDERED: magnesium sulf-water 2g/50mL 50 ML IV PRN (22:40)
[2024-08-06] MEDS ORDERED: acetaminophen 325mg tablet PO PRN (22:40)
[2024-08-06] MEDS ORDERED: mag hydrox/Alum hydrox/simeth 30ml oral suspension PO PRN (22:40)
[2024-08-06] MEDS ORDERED: ondansetron/PF 4mg/2ml inj IV PRN (22:40)
[2024-08-06] MEDS ORDERED: potassium Cl 20 mEq SR tablet PO PRN (22:40)
[2024-08-06] MEDS ORDERED: magnesium hydroxide 30ml (MOM) UD suspension PO PRN (22:40)
[2024-08-06] MEDS ORDERED: magnesium sulf-water 4G/100mL 100 ML IV PRN (22:40)
[2024-08-06] MEDS ORDERED: magnesium Cl slow-release 64mg tablet PO PRN (22:40)
[2024-08-06 22:43] LABS: BILIRUBIN,URINE SMALL (Neg); CLARITY,URINE CLEAR (Clear); GLUCOSE, URINE >=1000 mg/dl (Neg); KETONES,URINE NEGATIVE (Neg); LEUKOCYTE ESTERASE ,URINE NEGATIVE (Neg); NITRITES, URINE NEGATIVE (Neg); OCCULT BLOOD,URINE NEGATIVE (Neg); PH,URINE 5.5 (4.8-8.0); PROTEIN,URINE 100 mg/dl (Neg)
[2024-08-06] MEDS ORDERED: DEXTROSE 15 GM of carb/4 tabs (each vial/BOTTLE has 4 tablets) PO PRN ×2 (22:45)
[2024-08-06] MEDS ORDERED: dextrose 50%-water 50ml dispensing syringe IV PRN ×2 (22:45)
[2024-08-06] MEDS ORDERED: glucagon, human recombinant 1mg kit SUBCUT PRN (22:45)
[2024-08-06 22:46] LABS: COLOR,URINE DARK YELLOW (Yellow); UA COLLECTION TYPE FOLEY CATH
[2024-08-06 22:48] LABS: BACTERIA,URINE 1+ /HPF (Neg); MUCUS STRANDS MANY /LPF (Neg); RBC,URINE 0-2 /HPF (0-2); SQUAMOUS EPITHELIAL CELL,UR FEW /LPF (FEW); WBC,URINE 0-4 /HPF (0-4)
[2024-08-06 22:49] LABS: RENAL CELLS, URINE FEW /HPF; TRANSITIONAL EPI CELLS,URINE FEW /HPF
[2024-08-06 23:02] LABS: HEMOGLOBIN A1C > 12.0 % (4.5-6.2)
[2024-08-06] MEDS: HYDROmorphone 1 mg/ml syringe IV ONE (23:23)
[2024-08-07] VITALS (7 sets, daily range): BP systolic 133–139; BP diastolic 57–70; PULSE 65; RESP 15–20; TEMP 97.3–98.3; O2SAT 92–97
[2024-08-07] MEDS: phytonadione 10 MG/1 ML amp PO ONE (00:09)
[2024-08-07] MEDS: normal saline 1000ml 1,000 ML IV SCH (00:21)
[2024-08-07] MEDS: fentaNYL/PF 50MCG/1 ML 2ML syringe IV ONE (01:22)
[2024-08-07] MEDS: HYDROmorphone inj. 0.5 MG/0.5 ML DISP.SYRIN IV PRN (02:44)
[2024-08-07 03:10] LABS: BASOPHILS % (AUTO) 0.5 % (0-1); EOSINOPHILS # (AUTO) 0.1 X10'3 (0-0.9); EOSINOPHILS % (AUTO) 2.6 % (0-6); HEMATOCRIT 38.5 % (42.0-52.0); HEMOGLOBIN 12.1 g/dl (14.0-17.9); LYMPHOCYTES # (AUTO) 0.7 X10'3 (1.1-4.8); LYMPHOCYTES % (AUTO) 12.6 % (21-51); MEAN CORPUSCULAR HEMOGLOBIN 26.4 PG (27.0-31.0); MEAN CORPUSCULAR HGB CONC 31.4 g/dL (33.0-36.5); MEAN CORPUSCULAR VOLUME 84.1 FL (78-98); MEAN PLATELET VOLUME 8.3 FL (7.4-10.4); MONOCYTES # (AUTO) 0.6 X10'3 (0-0.9); MONOCYTES % (AUTO) 11.5 % (2-12); NEUTROPHILS # (AUTO) 3.8 X10'3 (1.8-7.7); NEUTROPHILS % (AUTO) 72.8 % (42-75); PLATELET COUNT 222 X10'3 (140-440); RED BLOOD COUNT 4.58 X10'6 (4.70-6.10); RED CELL DISTRIBUTION WIDTH 16.4 % (11.5-14.5); WHITE BLOOD COUNT 5.3 X10'3 (4.5-11.0)
[2024-08-07 03:17] LABS: ALBUMIN 2.4 G/DL (3.4-5.0); ANION GAP 5 (8-16); BLOOD UREA NITROGEN 11 MG/DL (7-18); BUN/CREATININE RATIO 14.5 (10.0-20.0); CALCIUM 8.8 MG/DL (8.5-10.1); CHLORIDE 101 MMOL/L (99-107); CREATININE 0.76 MG/DL (0.60-1.10); GLUCOSE 251 MG/DL (70-104); POTASSIUM 3.2 MMOL/L (3.5-5.1); SODIUM 139 MMOL/L (135-145); eCRCL 89 ML/MIN; eGFR > 90 ML/MIN
[2024-08-07 03:25] LABS: PROTHROMBIN TIME 42.3 SECONDS (9.0-12.0)
[2024-08-07 03:28] LABS: INR 4.5 INR
[2024-08-07] MEDS: potassium Cl 40MEQ/1/2NS 520ml 520 ML IV PRN (05:09)
[2024-08-07 07:44] LABS: PRO BRAIN NATRIURETIC PEPTIDE 634 PG/ML (0-450)
[2024-08-07] MEDS: K and/or MAG REPLACEMENT MC SCH (08:00)
[2024-08-07 08:29] LABS: INR 5.2 INR
[2024-08-07] MEDS: gabapentin 300mg capsule PO SCH (09:20)
[2024-08-07] MEDS: phytonadione inj. 10 MG in normal saline 100ml IV soln 100 ML IV ONE (09:20)
[2024-08-07] MEDS: acyclovir 200 MG capsule PO SCH (09:21)
[2024-08-07] MEDS: metoprolol tartrate 25mg tablet PO SCH (09:21)
[2024-08-07] MEDS: INSULIN LISPRO 100 UNIT/ML INSULN.PEN MULTI-DOSE SQ SCH (10:10)
[2024-08-07] MEDS ORDERED: HYDROcodone/acetaminophen 5mg/325mg tablet PO PRN (10:15)
[2024-08-07] MEDS ORDERED: HYDROcodone/acetaminophen 10/325mg tab PO PRN (10:15)
[2024-08-07] MEDS ORDERED: ipratropium/albuterol 3ml nebule NEB PRN (12:15)
[2024-08-07] MEDS: PERFLUTREN PROTEIN-A MICROSPHR (Optison) 0.22 MG/ML 3ML VIAL IV ONE (12:15)
[2024-08-07] MEDS: diatrozoate meglu/diatrozoate sod (37% iodine) 120ML oral solution PO ONE (13:25)
[2024-08-07] MEDS: diatr meglu/diatrizoate 30ml oral sol.-(3 dose) bottle PO ONE (13:35)
[2024-08-07] MEDS ORDERED: pneumococcal 23-VAL P-sac vacc 25 mcg/0.5ml vial IMVAC ONE (16:50)
[2024-08-07 17:29] LABS: PROTHROMBIN TIME 18.9 SECONDS (9.0-12.0)
[2024-08-07 18:24] LABS: APTT 42 SECONDS (22-32)
[2024-08-07 18:26] LABS: INR 1.9 INR
[2024-08-07] MEDS: ketorolac trometh 15mg/ml vial 15 MG/ML ML IM PRN (18:48)
[2024-08-07] MEDS: potassium Cl 20 mEq SR tablet PO PRN (20:37)
[2024-08-07] MEDS: simvastatin 20mg tablet PO SCH (20:38)
[2024-08-07] MEDS: diatr meglu/diatrizoate 30ml oral sol.-(3 dose) bottle PO SCH (20:39)
[2024-08-07] MEDS ORDERED: insulin glargine (Lantus) pen - multi-dose SQ SCH (21:00)
[2024-08-07] MEDS: insulin glargine (Lantus) pen - multi-dose SQ SCH (21:38)
[2024-08-08] VITALS (7 sets, daily range): BP systolic 125–141; BP diastolic 37–57; PULSE 60–65; RESP 12–20; TEMP 97.8–98.3; O2SAT 91–97
[2024-08-08] MEDS: HYDROmorphone inj. 0.5 MG/0.5 ML DISP.SYRIN IV PRN (03:08)
[2024-08-08 07:04] LABS: BASOPHILS % (AUTO) 0.4 % (0-1); EOSINOPHILS # (AUTO) 0.1 X10'3 (0-0.9); EOSINOPHILS % (AUTO) 2.1 % (0-6); HEMOGLOBIN 10.5 g/dl (14.0-17.9); LYMPHOCYTES # (AUTO) 0.6 X10'3 (1.1-4.8); LYMPHOCYTES % (AUTO) 8.2 % (21-51); MEAN CORPUSCULAR HEMOGLOBIN 27.1 PG (27.0-31.0); MEAN CORPUSCULAR HGB CONC 31.6 g/dL (33.0-36.5); MEAN CORPUSCULAR VOLUME 85.6 FL (78-98); MEAN PLATELET VOLUME 8.8 FL (7.4-10.4); MONOCYTES # (AUTO) 1.1 X10'3 (0-0.9); MONOCYTES % (AUTO) 14.9 % (2-12); NEUTROPHILS # (AUTO) 5.3 X10'3 (1.8-7.7); NEUTROPHILS % (AUTO) 74.4 % (42-75); PLATELET COUNT 187 X10'3 (140-440); RED BLOOD COUNT 3.86 X10'6 (4.70-6.10); RED CELL DISTRIBUTION WIDTH 16.7 % (11.5-14.5); WHITE BLOOD COUNT 7.1 X10'3 (4.5-11.0)
[2024-08-08 07:15] LABS: ALBUMIN 1.9 G/DL (3.4-5.0); ANION GAP 5 (8-16); BLOOD UREA NITROGEN 12 MG/DL (7-18); BUN/CREATININE RATIO 17.9 (10.0-20.0); CALCIUM 8.1 MG/DL (8.5-10.1); CHLORIDE 105 MMOL/L (99-107); CREATININE 0.67 MG/DL (0.60-1.10); GLUCOSE 235 MG/DL (70-104); POTASSIUM 4.3 MMOL/L (3.5-5.1); SODIUM 138 MMOL/L (135-145); TOTAL CARBON DIOXIDE 28.3 MMOL/L (24-32); eCRCL 101 ML/MIN; eGFR > 90 ML/MIN
[2024-08-08 09:14] LABS: INR 1.3 INR; PROTHROMBIN TIME 13.6 SECONDS (9.0-12.0)
[2024-08-08] MEDS: furosemide 40mg/4ml inj IV SCH (09:27)
[2024-08-08] MEDS ORDERED: iohexol 300mg/ml 100ml inj. ONE (10:37)
[2024-08-08] MEDS ORDERED: HYDROmorphone inj. 0.5 MG/0.5 ML DISP.SYRIN IV PRN (11:50)
[2024-08-08] MEDS: oxyCODONE/APAP 5-325mg tablet PO PRN (12:29)
[2024-08-08] MEDS: ketorolac trometh 15mg/ml vial 15 MG/ML ML IV PRN (13:53)
[2024-08-08 14:37] LABS: ALANINE AMINOTRANSFERASE 11 U/L (12-78); ALBUMIN/GLOBULIN RATIO 0.5 (1.1-1.5); ALKALINE PHOSPHATASE 57 IU/L (46-116); AMYLASE 11 U/L (25-115); ASPARTATE AMINO TRANSFERASE 25 U/L (10-37); BILIRUBIN,TOTAL 0.8 MG/DL (0.1-1.0); LIPASE 8 U/L (16-77); TOTAL PROTEIN 5.7 G/DL (6.4-8.2)
[2024-08-09] VITALS (20 sets, daily range): BP systolic 111–182; BP diastolic 44–84; PULSE 59–67; RESP 12–19; TEMP 97.4–98.6; O2SAT 85–97
[2024-08-09 07:17] LABS: BASOPHILS % (AUTO) 0.4 % (0-1); EOSINOPHILS # (AUTO) 0.2 X10'3 (0-0.9); HEMATOCRIT 31.8 % (42.0-52.0); HEMOGLOBIN 10.1 g/dl (14.0-17.9); LYMPHOCYTES # (AUTO) 0.6 X10'3 (1.1-4.8); LYMPHOCYTES % (AUTO) 10.1 % (21-51); MEAN CORPUSCULAR HEMOGLOBIN 26.8 PG (27.0-31.0); MEAN CORPUSCULAR HGB CONC 31.7 g/dL (33.0-36.5); MEAN CORPUSCULAR VOLUME 84.3 FL (78-98); MEAN PLATELET VOLUME 8.7 FL (7.4-10.4); MONOCYTES # (AUTO) 0.9 X10'3 (0-0.9); MONOCYTES % (AUTO) 14.6 % (2-12); NEUTROPHILS # (AUTO) 4.3 X10'3 (1.8-7.7); NEUTROPHILS % (AUTO) 70.9 % (42-75); PLATELET COUNT 209 X10'3 (140-440); RED BLOOD COUNT 3.77 X10'6 (4.70-6.10); RED CELL DISTRIBUTION WIDTH 16.1 % (11.5-14.5); WHITE BLOOD COUNT 6.1 X10'3 (4.5-11.0)
[2024-08-09 07:35] LABS: INR 1.2 INR
[2024-08-09 07:38] LABS: ALBUMIN 1.8 G/DL (3.4-5.0); ANION GAP 3 (8-16); BLOOD UREA NITROGEN 16 MG/DL (7-18); BUN/CREATININE RATIO 23.5 (10.0-20.0); CALCIUM 8.4 MG/DL (8.5-10.1); CHLORIDE 104 MMOL/L (99-107); CREATININE 0.68 MG/DL (0.60-1.10); GLUCOSE 218 MG/DL (70-104); POTASSIUM 4.4 MMOL/L (3.5-5.1); SODIUM 141 MMOL/L (135-145); TOTAL CARBON DIOXIDE 34.1 MMOL/L (24-32); eCRCL 100 ML/MIN; eGFR > 90 ML/MIN
[2024-08-09] MEDS ORDERED: pneumococcal 23-VAL P-sac vacc 25 mcg/0.5ml vial IMVAC ONE (10:00)
[2024-08-09] MEDS: oxyCODONE/APAP 10/325mg tablet PO PRN (12:26)
[2024-08-09] MEDS ORDERED: fentaNYL/PF 50MCG/1 ML 2ML syringe ONE (16:36)
[2024-08-09] MEDS ORDERED: sevoflurane 250ml liquid IH ONE (16:49)
[2024-08-09] MEDS ORDERED: propofol inj 20 ML IV ONE (16:56)
[2024-08-09] MEDS ORDERED: ceFAZolin 1000mg inj ONE ×3 (17:05)
[2024-08-09] MEDS: ringers solution, lacted 1,000 ML IV SCH (18:45)
[2024-08-09] MEDS ORDERED: meperidine/PF 25mg/ml syringe IV PRN ×2 (18:45)
[2024-08-09] MEDS ORDERED: labetalol 20mg/4ml (5mg/ml) syringe IV PRN (18:45)
[2024-08-09] MEDS ORDERED: HYDROmorphone/PF 0.2 MG/ML SYRINGE IV PRN ×2 (18:45)
[2024-08-09] MEDS ORDERED: ondansetron/PF 4mg/2ml inj IV PRN (18:45)
[2024-08-09] MEDS: BUPIVAcaine 0.5% inj/PF 0 ML ONE (18:47)
[2024-08-09] MEDS: vancomycin 1,000mg inj ONE (18:47)
[2024-08-09] MEDS: tranexamic acid 100mg/ml inj. ONE (18:47)
[2024-08-09] MEDS: acetaminophen 1,000mg/100ml IV 100 ML IV ONE (18:57)
[2024-08-09] MEDS: meperidine/PF 25mg/ml syringe IV PRN (19:00)
[2024-08-09] MEDS: HYDROmorphone 1 mg/ml syringe IV PRN (21:00)
[2024-08-10] MEDS: cefazolin 2gm/D5W 100mL 100 ML IV SCH (00:54)
[2024-08-10 02:00] VITALS: BP 126/60; PULSE 67; RESP 17; TEMP 97.9; O2SAT 95
[2024-08-10 06:00] VITALS: BP 134/56; PULSE 64; RESP 15; TEMP 97.9; O2SAT 96
[2024-08-10 07:16] LABS: BASOPHILS % (AUTO) 0.8 % (0-1); EOSINOPHILS # (AUTO) 0.2 X10'3 (0-0.9); EOSINOPHILS % (AUTO) 2.6 % (0-6); HEMATOCRIT 28.7 % (42.0-52.0); HEMOGLOBIN 9.2 g/dl (14.0-17.9); LYMPHOCYTES # (AUTO) 0.5 X10'3 (1.1-4.8); LYMPHOCYTES % (AUTO) 7.6 % (21-51); MEAN CORPUSCULAR HEMOGLOBIN 26.9 PG (27.0-31.0); MEAN CORPUSCULAR HGB CONC 32.1 g/dL (33.0-36.5); MEAN CORPUSCULAR VOLUME 83.9 FL (78-98); MEAN PLATELET VOLUME 8.6 FL (7.4-10.4); MONOCYTES # (AUTO) 0.8 X10'3 (0-0.9); MONOCYTES % (AUTO) 12.2 % (2-12); NEUTROPHILS # (AUTO) 4.9 X10'3 (1.8-7.7); NEUTROPHILS % (AUTO) 76.8 % (42-75); PLATELET COUNT 243 X10'3 (140-440); RED BLOOD COUNT 3.42 X10'6 (4.70-6.10); RED CELL DISTRIBUTION WIDTH 15.5 % (11.5-14.5); WHITE BLOOD COUNT 6.4 X10'3 (4.5-11.0)
[2024-08-10 07:24] LABS: INR 1.2 INR; PROTHROMBIN TIME 12.2 SECONDS (9.0-12.0)
[2024-08-10 07:30] LABS: ALBUMIN 1.7 G/DL (3.4-5.0); ANION GAP 4 (8-16); BLOOD UREA NITROGEN 17 MG/DL (7-18); BUN/CREATININE RATIO 24.3 (10.0-20.0); CHLORIDE 103 MMOL/L (99-107); GLUCOSE 177 MG/DL (70-104); POTASSIUM 3.9 MMOL/L (3.5-5.1); SODIUM 140 MMOL/L (135-145); TOTAL CARBON DIOXIDE 32.9 MMOL/L (24-32); eCRCL 97 ML/MIN; eGFR > 90 ML/MIN
[2024-08-10 07:44] VITALS: PULSE 65; RESP 18; O2SAT 95
[2024-08-10 08:00] VITALS: RESP 15; O2SAT 94
[2024-08-10 10:00] VITALS: BP 116/57; PULSE 65; RESP 15; TEMP 98; O2SAT 94
[2024-08-10 15:26] VITALS: RESP 16
== END 2024-08-10 15:45 | DRG 480 ==
LOC: ER 20:30 → ED HOLD 22:42 → ORTHO 4S 08-07 07:33
PROVIDERS: ADMIT Internal Medicine Critical Care Medicine; ATTEND Internal Medicine
PROC: 0QS606Z Reposition Right Upper Femur with Intramedullary Internal Fixation Device, Open Approach (ICD-10-PCS; principal; 2024-08-09 16:49)
DX: S72.141A Displaced intertrochanteric fracture of right femur, initial encounter for closed fracture (principal); I50.31 Acute diastolic (congestive) heart failure; J96.01 Acute respiratory failure with hypoxia; Z68.41 Body mass index [BMI] 40.0-44.9, adult; E66.01 Morbid (severe) obesity due to excess calories; I27.20 Pulmonary hypertension, unspecified; I11.0 Hypertensive heart disease with heart failure; I48.0 Paroxysmal atrial fibrillation; J43.9 Emphysema, unspecified; E11.42 Type 2 diabetes mellitus with diabetic polyneuropathy; G47.33 Obstructive sleep apnea (adult) (pediatric); Z66 Do not resuscitate; G89.29 Other chronic pain; W18.39XA Other fall on same level, initial encounter; M54.9 Dorsalgia, unspecified; I50.9 Heart failure, unspecified; Z88.1 Allergy status to other antibiotic agents; Z88.5 Allergy status to narcotic agent; Z88.2 Allergy status to sulfonamides; Z88.8 Allergy status to other drugs, medicaments and biological substances; Z79.899 Other long term (current) drug therapy; Z87.891 Personal history of nicotine dependence; Y93.89 Activity, other specified; Y92.89 Other specified places as the place of occurrence of the external cause; Y99.8 Other external cause status
CPT/HCPCS: 36415; 70450; 71045; 71260; 72125; 72192; 73060; 73502; 74177; 76000; 80048; 80053; 81001; 82150; 82948; 83036; 83690; 83880; 85007; 85025; 85610; 85730; 86885; 86900; 86901; 87081; 90732; 93005; 93306; 94760; 96374; 96375; 97110; 97162; 97530; 99285; A4215; A4314; A4615; A4618; A5200; A6212; A6213; A6222; A6258; A6260; A6446; A6449; A6590; A7000; C1713; G0378; J0131; J0690; J1170; J1815; J1885; J1940; J2175; J2405; J2704; J3010; J3370; J3430; J3480; J3490; J7030; Q9963; Q9967